=== PATIENT | male | born 1960 | race Caucasian/White ===

== ENCOUNTER 2016-10-28 21:50 | Inpatient (IN) | payer BC ==
[~2016-10-28] VITALS: Ht 180.3 cm; Wt 101.0 kg
[2016-10-28] MEDS ORDERED: ASPIRIN 324 MG CHEW PO STA (22:16)
[2016-10-28] MEDS ORDERED: SODIUM CHLORIDE 0.9% 1000ML 1,000 ML IV ONE (22:30)
[2016-10-28] MEDS ORDERED: NITROGLYCERIN OINT 2% 1GM PACKET EXT ONE (22:30)
[2016-10-28 22:34] LABS: BASO ABS # 0.07 K/uL (0-0.2); COMPLETE YES; EOS % 2.4 %; HEMATOCRIT 42.5 % (42-52); IG% 0.1 %; LYMPH % 32.2 %; LYMPH ABS # 2.16 K/uL (1.2-3.4); MEAN CELL VOLUME 84.3 fL (80-100); MEAN CORPUSCULAR HEMOGLOBIN 28.8 pg (25-34); MEAN CORPUSCULAR HGB CONC 34.1 g/dl (32-36); MEAN PLATELET VOLUME 10.8 fL (7.4-10.4); MONO % 11.6 %; NEUT % 52.7 %; PLATELET COUNT 187 K/uL (130-400); RED BLOOD COUNT 5.04 M/uL (4.7-6.1)
[2016-10-28 22:44] LABS: INR 0.9 (0.9-1.1); PARTIAL THROMBOPLASTIN RATIO 1.2; PROTHROMBIN TIME (PATIENT) 10.1 SECONDS (9.0-12.0)
[2016-10-28 22:46] LABS: BUN/CREATININE RATIO 17.1 (10-20); CREATININE 0.86 mg/dl (0.60-1.40); POTASSIUM 3.7 mmol/L (3.5-5.1)
[2016-10-28 22:51] LABS: CALCIUM 8.5 mg/dl (8.5-10.1)
--- NOTE | 2016-10-28 22:54 | DIAGNOSTIC IMAGING REPORT ---
CHEST 2 VIEWS ROUTINE CLINICAL HISTORY: Left side chest pain dyspnea COMPARISON STUDY: No previous studies for comparison. FINDINGS: The bones soft tissues and hemidiaphragms are normal. The cardiomediastinal silhouette is normal. The lungs are clear. The pulmonary vasculature is normal. IMPRESSION: Negative chest. Electronically signed by: Delfino Urbano M.D. 10/28/2016 10:52 PM Dictated Date/Time: 10/28/2016 10:52 PM
[2016-10-28 22:56] LABS: ALB/GLOB RATIO 1.1 (0.9-2); THYROID STIMULATING HORMONE 1.03 uIu/ml (0.300-4.500)
[2016-10-28 23:07] LABS: URINE APPEARANCE CLEAR (CLEAR); URINE BILIRUBIN NEG (NEG); URINE COLOR YELLOW; URINE NITRITE NEG (NEG); URINE PH 5.5 (4.5-7.5); URINE SPECIFIC GRAVITY 1.027 (1.000-1.030); UROBILINOGEN NEG (NEG); ZZUR CULT IF INDIC CLEAN CATCH NO
[2016-10-28 23:18] LABS: MANUAL MICROSCOPIC REQUIRED? NO; REVIEW REQ? NO
[2016-10-29] VITALS (25 sets, daily range): BP systolic 97–145; BP diastolic 50–102; PULSE 50–86; TEMP 36.4–37; O2SAT 94–98; Ht 180.3 cm; Wt 101.0 kg
[2016-10-29] MEDS ORDERED: ACETAMINOPHEN 325 MG TAB PO PRN ×2 (01:00→08:45)
[2016-10-29] MEDS ORDERED: NITROGLYCERIN 0.4 MG SL PER TAB CHARGE SL PRN (01:00)
[2016-10-29] MEDS ORDERED: ONDANSETRON INJ 2 MG/ML 2 ML VIAL IV PRN ×2 (01:00→08:45)
--- NOTE | 2016-10-29 01:24 | History and Physical ---
History & Physical Date & Time of Service: October 29, 2016 at 01:05 Chief Complaint: Chest Pains, Left Arm Numbess/Jaw Pain, Nausea Primary Care Physician: Catrachito Doyle M.D. History of Present Illness Source: patient Mr Dodson is a 56 year old male who presents with aching left sided chest pain radiating to his left arm with numbness and jaw with associated nausea and dizziness. Over the course of the afternoon his chest pain became increasingly worse but noticed no change with exertion or eating food. He ate dinner and it made no difference to the pain. He had associated nausea and dizziness with this but denies shortness of breath or diaphoresis. He has never had a pain like this previously. He was previously well up until this happened. He denies any diabetes. He was diagnosed with hyperlipidemia and hypertension and was previously on medication for this but both were stopped as they improved with weight loss. Past Medical/Surgical History Past Medical History: Previous HTN, reports no longer requiring medication for control Previous hyperlipidemia, reports no longer requiring medication for control Family History Father had an NE with quadruple bypass in his early 60's Mother had NE in 80's Social History Smoking Status: Never Smoker Smokeless Tobacco Use: No Alcohol Use: occasionally (3-4 drinks beer/wine/week) Drug Use: none Allergies Coded Allergies: Penicillins (Unverified Allergy, Unknown, CHILD HERRERA ALLERGY, 10/28/16) Home Medications No Active Prescriptions or Reported Meds Review of Systems Constitutional: No chills, No fever, No problem reported Eyes: No problem reported, No worsening of vision ENT: No hearing loss, No nasal symptoms, No problem reported, No unusual epistaxis Respiratory: No cough, No dyspnea on exertion, No problem reported, No shortness of breath, No sputum, No wheezing Cardiovascular: + chest pain, No PND, No claudication, No edema, No orthopnea, No palpitations, No problem reported Abdomen: + diarrhea (1 episode loose stool this morning), No constipation, No nausea, No pain, No vomiting Musculoskeletal: No joint pain, No muscle pain, No problem reported Genitourinary - Male: No dysuria, No hematuria, No problem reported Neurologic: + problem reported (headache for past 8 weeks) Psychiatric: No anxiety, No depression symptoms, No substance abuse Endocrine: No excessive thirst, No excessive urination, No fatigue, No problem reported Hematologic / Lymphatic: No abnormal bleeding/bruising, No problem reported Integumentary: No itch, No problem reported, No rash Physical Exam Vital Signs Date Time Temp Pulse Resp B/P Pulse Ox O2 Delivery O2 Flow Rate FiO2 10/29/16 00:43 62 16 121/85 Room Air 10/28/16 23:23 62 16 121/85 96 Room Air 10/28/16 22:20 Room Air 10/28/16 22:19 Room Air 10/28/16 22:10 67 10/28/16 21:54 36.5 60 16 184/100 95 Room Air General Appearance: WD/WN, no apparent distress Head: normocephalic, atraumatic Eyes: normal inspection, PERRL, EOMI ENT: normal ENT inspection, hearing grossly normal, + pertinent finding (mild discharge in nares b/l, good space) Neck: supple, no JVD Respiratory/Chest: lungs clear, normal breath sounds, no respiratory distress, no accessory muscle use, + pertinent finding (chest pain slightly exacerbated on palpation) Cardiovascular: regular rate, rhythm, no edema, no murmur, normal peripheral pulses Abdomen/GI: normal bowel sounds, non tender, soft Back: no CVA tenderness Extremities/Musculoskelatal: no calf tenderness, normal capillary refill, no pedal edema, normal range of motion, + pertinent finding (Left leg calf circumference 2cm> right leg) 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 (grossly), no motor/sensory deficits , alert, normal mood/affect, oriented x 3 Skin: normal color, warm/dry, no rash Diagnostics Laboratory Results Results Past 24 Hours Test 10/28/16 22:07 10/28/16 22:18 10/28/16 22:53 Range/Units White Blood Count 6.70 4.8-10.8 K/uL Red Blood Count 5.04 4.7-6.1 M/uL Hemoglobin 14.5 14.0-18.0 g/dL Hematocrit 42.5 42-52 % Mean Corpuscular Volume 84.3 80-100 fL Mean Corpuscular Hemoglobin 28.8 25-34 pg Mean Corpuscular Hemoglobin Concent 34.1 32-36 g/dl Platelet Count 187 130-400 K/uL Mean Platelet Volume 10.8 7.4-10.4 fL Neutrophils (%) (Auto) 52.7 % Lymphocytes (%) (Auto) 32.2 % Monocytes (%) (Auto) 11.6 % Eosinophils (%) (Auto) 2.4 % Basophils (%) (Auto) 1.0 % Neutrophils # (Auto) 3.52 1.4-6.5 K/uL Lymphocytes # (Auto) 2.16 1.2-3.4 K/uL Monocytes # (Auto) 0.78 0.11-0.59 K/uL Eosinophils # (Auto) 0.16 0-0.5 K/uL Basophils # (Auto) 0.07 0-0.2 K/uL RDW Standard Deviation 39.5 36.4-46.3 fL RDW Coefficient of Variation 13.0 11.5-14.5 % Immature Granulocyte % (Auto) 0.1 % Immature Granulocyte # (Auto) 0.01 0.00-0.02 K/uL Prothrombin Time 10.1 9.0-12.0 SECONDS Prothromb Time International Ratio 0.9 0.9-1.1 Activated Partial Thromboplast Time 30.0 21.0-31.0 SECONDS Partial Thromboplastin Ratio 1.2 Sodium Level 142 136-145 mmol/L Potassium Level 3.7 3.5-5.1 mmol/L Chloride Level 106 98-107 mmol/L Carbon Dioxide Level 28 21-32 mmol/L Anion Gap 8.0 3-11 mmol/L Blood Urea Nitrogen 15 7-18 mg/dl Creatinine 0.86 0.60-1.40 mg/dl Est Creatinine Clear Calc Drug Dose 114.3 ml/min Estimated GFR () 111.6 Estimated GFR (Non- 96.3 BUN/Creatinine Ratio 17.1 10-20 Random Glucose 150 70-99 mg/dl Calcium Level 8.5 8.5-10.1 mg/dl Magnesium Level 2.0 1.8-2.4 mg/dl Total Bilirubin 0.3 0.2-1 mg/dl Aspartate Amino Transf (AST/SGOT) 32 15-37 U/L Alanine Aminotransferase (ALT/SGPT) 42 12-78 U/L Alkaline Phosphatase 84 45-117 U/L Total Protein 7.1 6.4-8.2 gm/dl Albumin 3.7 3.4-5.0 gm/dl Globulin 3.4 2.5-4.0 gm/dl Albumin/Globulin Ratio 1.1 0.9-2 Lipase 267 73-393 U/L Thyroid Stimulating Hormone (TSH) 1.030 0.300-4.500 uIu/ml Bedside Troponin I 0.020 0-0.045 ng/ml Urine Color YELLOW Urine Appearance CLEAR CLEAR Urine pH 5.5 4.5-7.5 Urine Specific [place] 1.027 1.000-1.030 Urine Protein 1+ NEG Urine Glucose (UA) NEG NEG Urine Ketones TRACE NEG Urine Occult Blood NEG NEG Urine Nitrite NEG NEG Urine Bilirubin NEG NEG Urine Urobilinogen NEG NEG Urine Leukocyte Esterase NEG NEG Urine WBC (Auto) 1-5 0-5 /hpf Urine RBC (Auto) 0-4 0-4 /hpf Urine Hyaline Casts (Auto) 0 0-5 /lpf Urine Epithelial Cells (Auto) 10-20 0-5 /lpf Urine Bacteria (Auto) NEG NEG CXR normal, No Pneumothorax, No Infiltrate, No Mass, No Atelectasis, No Effusion EKG No ischemic changes 74 bpm Normal EKG Impression Assessment and Plan 56 year old male presented with left sided chest pain, associated dizziness and left arm numbness. Chest pain with associated left arm numbness - does not appear GI related, need to rule out NE with FHx and PE with leg circumference difference. - D-dimer pending - Serial troponin - Consider stress echo in morning if above negative - will be NPO due to possible need for cardiac cath tomorrow - nitro and EKG for chest pain - somewhat reproducible therefore may be costochondritis, recommend treating with ibuprofen if above is negative. Left leg circumference > right leg - given discrepancy in circumference I will order a d-dimer to rule out DVT/PE. If positive will need a US doppler and CTA. Tension vs. sinus headache - acetaminophen as required - Follow up with PCP VTE Prophylaxis - Given young age and mobility with likely short admission will hold off chemical prophyalaxis currently. If DVT or PE confirmed he will need treatment dose. Code - Full Disposition - observation status under telemetry Level of Care Telemetry Advanced Directives Existing Living Will: No Existing Power of Research Physicist: No Resuscitation Status FULL RESUSCITATION VTE Prophylaxis VTE Risk Assessment Done? Y/N: Yes Risk Level: Low Given or contraindicated: Treatment not indicated Resident Tracking Resident Involvement: Resident Care Provided Care Provided: Adult [facility] Medicine Assessment and Plan Attending Addendum: I have physically seen and examined this patient, have directed their medical care, have supervised the medical residents activities, and agree with the H&P as noted above, with the following changes: NONE
[2016-10-29] MEDS ORDERED: IV FLUIDS COMPLETED PRN (01:45)
[2016-10-29] MEDS: SODIUM CHLORIDE 0.9% 1000ML 1,000 ML IV SCH ×3 (02:08→16:11)
--- NOTE | 2016-10-29 02:10 | EMERGENCY ROOM VISIT NOTE ---
History First contact with patient: 22:03 Chief Complaint: CHEST PAIN Stated Complaint: CHEST PAIN, R/O ACUTE MYOCARDIAL INFARCTION Nursing Triage Summary: CP 5/10 radiating to left arm. Pain is less now then when at home. History of Present Illness The patient is a 56 year old male who presents to the Emergency Room with complaints of dull left-sided chest pain that is radiating into his left shoulder and into his left-sided neck. The patient states that the symptoms have been ongoing all day and did not appear to improve or worsen with food or exertion. The patient considers herself usually healthy and does not take medication on a regular basis. He has a past history of hypertension and dyslipidemia, but this is evidently been controlled with weight loss. The patient is not diabetic. He states that he has a family history of cardiac disease, with his father having an ID in his early 60s and his mother having an ID in her 80s. The patient does not have distinct shortness of breath. He has not had recent travel history and rates his discomfort a 5/10. Review of Systems More than 10 systems were reviewed and otherwise negative with the exception of history of present illness. Past Medical/Surgical History Medical Problems: (1) Chest pain, rule out acute myocardial infarction Social History Smoking Status: Never Smoker Smokeless Tobacco Use: No Drug Use: none Current/Historical Medications No Active Prescriptions or Reported Meds Allergies Coded Allergies: Penicillins (Unverified Allergy, Unknown, CHILD HERRERA ALLERGY, 10/28/16) Physical Exam Vital Signs Date Time Temp Pulse Resp B/P Pulse Ox O2 Delivery O2 Flow Rate FiO2 10/29/16 00:43 62 16 121/85 Room Air 10/28/16 23:23 62 16 121/85 96 Room Air 10/28/16 22:20 Room Air 10/28/16 22:19 Room Air 10/28/16 22:10 67 10/28/16 21:54 36.5 60 16 184/100 95 Room Air Pain Rating (0-10): 0 Physical Exam VITALS: Vitals are noted on the nurse's note and reviewed by myself. Vital signs with initial hypertension GENERAL: Well-developed, well-nourished, white male, who is in no acute distress and resting comfortably. Patient is cooperative with the examination. HEAD: Normocephalic atraumatic. NECK: Supple without nuchal rigidity. No lymphadenopathy. No thyromegaly. Cervical spine is nontender. HEART: Regular rate and rhythm without murmurs gallops or rubs. LUNGS: Clear to auscultation bilaterally without wheezes, rales or rhonchi. No retractions or accessory muscle use. MUSCULOSKELETAL: No muscle atrophy, erythema, or edema noted. Full range of motion without joint tenderness in all extremities. Medical Decision & Procedures ER Provider Diagnostic Interpretation: CHEST 2 VIEWS ROUTINE CLINICAL HISTORY: Left side chest pain dyspnea COMPARISON STUDY: No previous studies for comparison. FINDINGS: The bones soft tissues and hemidiaphragms are normal. The cardiomediastinal silhouette is normal. The lungs are clear. The pulmonary vasculature is normal. IMPRESSION: Negative chest. Laboratory Results 10/28/16 22:07 Red Blood Count 5.04, Mean Corpuscular Volume 84.3, Mean Corpuscular Hemoglobin 28.8, Mean Corpuscular Hemoglobin Concent 34.1, Mean Platelet Volume 10.8, Neutrophils (%) (Auto) 52.7, Lymphocytes (%) (Auto) 32.2, Monocytes (%) (Auto) 11.6, Eosinophils (%) (Auto) 2.4, Basophils (%) (Auto) 1.0, Neutrophils # (Auto ) 3.52, Lymphocytes # (Auto) 2.16, Monocytes # (Auto) 0.78, Eosinophils # (Auto ) 0.16, Basophils # (Auto) 0.07 10/28/16 22:07 Test 10/28/16 22:07 10/28/16 22:18 10/28/16 22:53 White Blood Count 6.70 K/uL (4.8-10.8) Red Blood Count 5.04 M/uL (4.7-6.1) Hemoglobin 14.5 g/dL (14.0-18.0) Hematocrit 42.5 % (42-52) Mean Corpuscular Volume 84.3 fL (80-100) Mean Corpuscular Hemoglobin 28.8 pg (25-34) Mean Corpuscular Hemoglobin Concent 34.1 g/dl (32-36) Platelet Count 187 K/uL (130-400) Mean Platelet Volume 10.8 fL (7.4-10.4) Neutrophils (%) (Auto) 52.7 % Lymphocytes (%) (Auto) 32.2 % Monocytes (%) (Auto) 11.6 % Eosinophils (%) (Auto) 2.4 % Basophils (%) (Auto) 1.0 % Neutrophils # (Auto) 3.52 K/uL (1.4-6.5) Lymphocytes # (Auto) 2.16 K/uL (1.2-3.4) Monocytes # (Auto) 0.78 K/uL (0.11-0.59) Eosinophils # (Auto) 0.16 K/uL (0-0.5) Basophils # (Auto) 0.07 K/uL (0-0.2) RDW Standard Deviation 39.5 fL (36.4-46.3) RDW Coefficient of Variation 13.0 % (11.5-14.5) Immature Granulocyte % (Auto) 0.1 % Immature Granulocyte # (Auto) 0.01 K/uL (0.00-0.02) Prothrombin Time 10.1 SECONDS (9.0-12.0) Prothromb Time International Ratio 0.9 (0.9-1.1) Activated Partial Thromboplast Time 30.0 SECONDS (21.0-31.0) Partial Thromboplastin Ratio 1.2 D-Dimer 260 ug/L FEU (0-500) Anion Gap 8.0 mmol/L (3-11) Est Creatinine Clear Calc Drug Dose 114.3 ml/min Estimated GFR () 111.6 Estimated GFR (Non- 96.3 BUN/Creatinine Ratio 17.1 (10-20) Calcium Level 8.5 mg/dl (8.5-10.1) Magnesium Level 2.0 mg/dl (1.8-2.4) Total Bilirubin 0.3 mg/dl (0.2-1) Aspartate Amino Transf (AST/SGOT) 32 U/L (15-37) Alanine Aminotransferase (ALT/SGPT) 42 U/L (12-78) Alkaline Phosphatase 84 U/L (45-117) Troponin I 0.023 ng/ml (0-0.045) Total Protein 7.1 gm/dl (6.4-8.2) Albumin 3.7 gm/dl (3.4-5.0) Globulin 3.4 gm/dl (2.5-4.0) Albumin/Globulin Ratio 1.1 (0.9-2) Lipase 267 U/L (73-393) Thyroid Stimulating Hormone (TSH) 1.030 uIu/ml (0.300-4.500) Bedside Troponin I 0.020 ng/ml (0-0.045) Urine Color YELLOW Urine Appearance CLEAR (CLEAR) Urine pH 5.5 (4.5-7.5) Urine Specific [place] 1.027 (1.000-1.030) Urine Protein 1+ (NEG) Urine Glucose (UA) NEG (NEG) Urine Ketones TRACE (NEG) Urine Occult Blood NEG (NEG) Urine Nitrite NEG (NEG) Urine Bilirubin NEG (NEG) Urine Urobilinogen NEG (NEG) Urine Leukocyte Esterase NEG (NEG) Urine WBC (Auto) 1-5 /hpf (0-5) Urine RBC (Auto) 0-4 /hpf (0-4) Urine Hyaline Casts (Auto) 0 /lpf (0-5) Urine Epithelial Cells (Auto) 10-20 /lpf (0-5) Urine Bacteria (Auto) NEG (NEG) Medications Administered Medications (Trade) Dose Ordered Sig/Sera Route Start Time Stop Time Status Last Admin Dose Admin Aspirin (Aspirin Chew) 324 mg NOW STAT PO 10/28/16 22:16 10/28/16 22:19 DC 10/28/16 22:29 324 MG Nitroglycerin 1 inch 1 inch NOW ONCE EXT 10/28/16 22:30 10/28/16 22:31 DC 10/28/16 22:30 1 INCH Sodium Chloride (Nss 1000ml) 1,000 ml @ 500 mls/hr Q2H ONCE IV 10/28/16 22:30 10/29/16 00:29 DC 10/28/16 22:30 500 MLS/HR ED Course Physical exam and history were performed. Nursing notes and EMR were reviewed. Patient appears to have vague left-sided chest pain with radiation to his left shoulder and left side neck. EKG was performed and was normal sinus rhythm without ST elevation or evidence of ectopy. IV access was established and labs were obtained. The patient was given 324 mg aspirin and 1 inch Nitropaste. He is placed on the cardiac cath rn. Chest x-ray was performed. The patient's blood work is as above and was reviewed. He does not have a significantly elevated white blood cell count, gross anemia, bandemia, or significant electrolyte imbalance. Lipase and transaminases are nondiagnostic. Troponin 1 is negative. The patient remained in sinus rhythm on the monitor. Chest x-ray does not show significant acute findings. The patient was reevaluated multiple person stay. He did have some mild improvement of his discomfort throughout his stay here in the department. I do have concern that the patient's symptoms may represent unstable angina. He does have a condemned and family history, and his discomfort does correlate with cardiac symptoms. I discussed case with my attending physician, and then with the on-call hospitalist. Please see the hospitalist dictation for further patient course, plan, and disposition. The chart was completed utilizing [employer] Voice Recognition Software. Grammatical errors, random word insertions, pronoun errors, and incomplete sentences are an occasional consequence of this system due to software limitations, ambient noise, and hardware issues. Any formal questions or concerns about the content, text, or information contained within the body of this dictation should be directly addressed to the provider for clarification. . Medical Decision Differential diagnosis includes, but is not limited to: Myocardial infarction, dysrhythmia, pericarditis, pneumothorax, aortic aneurysm/dissection, DVT/PE, anxiety, GERD, PUD, electrolyte imbalance, thyroid disorder, pneumonia, bronchitis, pancreatitis, and others Impression Primary Impression: Chest pain, rule out acute myocardial infarction Departure Information Dispostion Still a Patient Condition GOOD Prescriptions No Active Prescriptions or Reported Meds Referrals Catrachito Doyle M.D. (PCP) Forms HOME CARE DOCUMENTATION FORM, IMPORTANT VISIT INFORMATION Patient Instructions My [facility]
[2016-10-29] MEDS ORDERED: MoRPHine SULFATE 2 MG/ML CARP IV STA (05:18)
[2016-10-29 05:28] LABS: HEMATOCRIT 40.8 % (42-52); MEAN CELL VOLUME 86.3 fL (80-100); MEAN CORPUSCULAR HEMOGLOBIN 28.3 pg (25-34); MEAN CORPUSCULAR HGB CONC 32.8 g/dl (32-36); MEAN PLATELET VOLUME 10.9 fL (7.4-10.4); PLATELET COUNT 155 K/uL (130-400); RED BLOOD COUNT 4.73 M/uL (4.7-6.1); WHITE BLOOD COUNT 5.84 K/uL (4.8-10.8)
[2016-10-29] MEDS ORDERED: MoRPHine SULFATE 2 MG/ML CARP IV PRN ×2 (05:30→08:45)
[2016-10-29 05:52] LABS: CALCIUM 8.1 mg/dl (8.5-10.1); CREATININE 0.79 mg/dl (0.60-1.40); POTASSIUM 3.8 mmol/L (3.5-5.1)
[2016-10-29 06:03] LABS: CHOLESTEROL/HDL RATIO 7.6
[2016-10-29 06:28] LABS: ESTIMATED AVERAGE GLUCOSE 111 mg/dl; HA1C FLAG Normal (Normal)
[2016-10-29] MEDS ORDERED: POTASSIUM CHLORIDE 20 MEQ TABCR PO STA (06:40)
[2016-10-29] MEDS: ASPIRIN 81 MG ECTAB PO SCH (07:28)
[2016-10-29] MEDS: ATORVASTATIN 40 MG TAB PO SCH (07:28)
[2016-10-29] MEDS ORDERED: HEPARIN SOD (PORCINE) 1000 UNIT/ML 10 ML VIAL ONE (08:13)
[2016-10-29] MEDS ORDERED: NiCARDipine HCL INJ 2.5 MG/ML 10 ML AMP ONE (08:13)
[2016-10-29] MEDS ORDERED: MIDAZOLAM HCL 1 MG/ML 2ML VIAL ONE (08:14)
[2016-10-29] MEDS ORDERED: NITROGLYCERIN/D5W 100MCG/ML 20ML SYR ONE (08:14)
[2016-10-29] MEDS ORDERED: FENTANYL CITRATE INJ 50 MCG/1 ML 2 ML VIAL ONE (08:14)
[2016-10-29] MEDS ORDERED: EPTIFIBATIDE BOLUS / DRIP IV ONE (08:45)
[2016-10-29] MEDS ORDERED: ATROPINE SULFATE 0.1 MG/ML 5ML SYR IV PRN (08:45)
[2016-10-29] MEDS ORDERED: LORAZEPAM INJ 0.5 MG in SYRINGE 0 ML IV PRN (08:45)
[2016-10-29] MEDS: CLOPIDOGREL BISULFATE 300 MG TAB PO ONE (09:06)
[2016-10-29] MEDS ORDERED: ATROPINE SULFATE 0.1 MG/ML 10 ML SYR ONE (09:07)
[2016-10-29] MEDS ORDERED: METOPROLOL TARTRATE 1 MG/ML VIAL ONE (09:19)
--- NOTE | 2016-10-29 09:40 | ECHOCARDIOGRAM REPORT ---
*NOTICE TO RECEIVING CONSTITUTION PARTY AGENCY This information is strictly Confidential and protected under [place] law. [place] law prohibits you from making any further disclosure of this information unless further disclosure is expressly permitted by the written consent of the person to whom it pertains or is authorized by law. A general authorization for the release of medical or other information is not sufficient for this purpose. Hospital accepts no responsibility if the information is made available to any other person, INCLUDING THE PATIENT. Interpretation Summary * Conclusions -- * Left ventricular systolic function is normal. * There are regional wall motion abnormalities as specified. * The right ventricular systolic function is mild to moderately reduced. * There is mild mitral regurgitation. Procedure Details * The study was technically adequate. Left Ventricle * The left ventricle is normal in size. * There is normal left ventricular wall thickness. * Left ventricular systolic function is normal. * Ejection Fraction = 50-55%. * There are regional wall motion abnormalities as specified. * Basal inferior wall is mildly hypokinetic Right Ventricle * The right ventricle is grossly normal size. * The right ventricular systolic function is mild to moderately reduced. Atria * The left atrial size is normal. * Right atrial size is normal. Mitral Valve * The mitral valve anatomy is normal. * There is mild mitral regurgitation. Tricuspid Valve * The tricuspid valve is not well visualized, but is grossly normal. * There is trace tricuspid regurgitation. Aortic Valve * The aortic valve is normal in structure and function. * No hemodynamically significant valvular aortic stenosis. * There is no significant aortic regurgitation. Pulmonic Valve * Trace pulmonic valvular regurgitation. Great Vessels * The aortic root is normal size. Pericardium/Pleural * There is no pericardial effusion. MMode 2D Measurements and Calculations IVSd 1.2 cm IVSs 1.7 cm LVIDd 4.9 cm LVIDs 3.6 cm LVPWd 0.97 cm LVPWs 1.5 cm IVS/LVPW 1.3 FS 26.9 % EDV(Teich) 112.2 ml ESV(Teich) 53.5 ml EF(Teich) 52.3 % EDV(cubed) 116.8 ml ESV(cubed) 45.7 ml EF(cubed) 60.9 % % IVS thick 41.5 % % LVPW thick 53.2 % LV mass(C)d 197.7 grams LV mass(C)dI 90.2 grams/m\S\2 LV mass(C)s 221.8 grams LV mass(C)sI 101.2 grams/m\S\2 SV(Teich) 58.6 ml SI(Teich) 26.8 ml/m\S\2 SV(cubed) 71.1 ml SI(cubed) 32.4 ml/m\S\2 Ao root diam 3.4 cm Ao root area 9.1 cm\S\2 LA dimension 3.8 cm LA/Ao 1.1 LVAd ap4 33.8 cm\S\2 LVLd ap4 9.6 cm EDV(MOD-sp4) 98.0 ml EDV(sp4-el) 101.3 ml LVAs ap4 20.8 cm\S\2 LVLs ap4 7.9 cm ESV(MOD-sp4) 46.8 ml ESV(sp4-el) 46.2 ml EF(MOD-sp4) 52.2 % EF(sp4-el) 54.4 % LVAd ap2 29.5 cm\S\2 LVLd ap2 8.4 cm EDV(MOD-sp2) 89.5 ml EDV(sp2-el) 88.3 ml LVAs ap2 17.1 cm\S\2 LVLs ap2 5.9 cm ESV(MOD-sp2) 43.0 ml ESV(sp2-el) 41.7 ml EF(MOD-sp2) 51.9 % EF(sp2-el) 52.7 % LVLd %diff -14.27 % EDV(MOD-bp) 100.8 ml LVLs %diff -33.94 % ESV(MOD-bp) 53.0 ml EF(MOD-bp) 47.5 % SV(MOD-sp4) 51.1 ml SI(MOD-sp4) 23.3 ml/m\S\2 SV(MOD-sp2) 46.5 ml SI(MOD-sp2) 21.2 ml/m\S\2 SV(MOD-bp) 47.8 ml SI(MOD-bp) 21.8 ml/m\S\2 SV(sp4-el) 55.1 ml SI(sp4-el) 25.2 ml/m\S\2 SV(sp2-el) 46.6 ml SI(sp2-el) 21.2 ml/m\S\2 Doppler Measurements and Calculations MV E max uday 85.6 cm/sec MV A max uday 71.0 cm/sec MV E/A 1.2 MV dec time 0.18 sec Ao V2 max 130.3 cm/sec Ao max PG 6.8 mmHg Ao max PG (full) 3.5 mmHg LV V1 max PG 3.3 mmHg LV V1 max 91.3 cm/sec
--- NOTE | 2016-10-29 10:11 | Procedure Note ---
Pre-Mod Sedation Assessment General Date of Moderate Sedation: October 29, 2016. Vital Signs: Vital Signs Past 12 Hours Date Time Temp Pulse Resp B/P Pulse Ox O2 Delivery O2 Flow Rate FiO2 10/29/16 09:45 95 18 135/99 95 Room Air 10/29/16 09:30 96 18 130/86 95 Room Air 10/29/16 08:24 36.5 63 16 140/98 94 Room Air 10/29/16 08:00 Room Air 10/29/16 07:55 36.5 63 16 140/98 94 Room Air 10/29/16 04:00 Room Air 10/29/16 03:54 50 16 143/85 94 Room Air 10/29/16 01:40 36.4 58 16 122/85 94 Room Air 10/29/16 01:25 36.6 63 16 118/84 94 10/29/16 00:43 62 16 121/85 Room Air 10/28/16 23:23 62 16 121/85 96 Room Air 10/28/16 22:20 Room Air 10/28/16 22:19 Room Air 10/28/16 22:10 67 Review Cardiovascular: regular rate, rhythm, no edema, no gallop, no JVD, no murmur, normal peripheral pulses Abdomen: non tender, soft Lungs: lungs clear Pre-Sedation Airway Assessment Oral Cavity: WNL Able to Visualize Vocal Cords: No Short Thick Neck: No Hx of Sleep Apnea: No Smoking Status: Never Smoker ASA Classification: Class III Procedure Planning Contraindications-for Mod Sed: None Yes Notes The planned sedation has been discussed with the patient and consent obtained. I have identified the patient, determined the appropriateness of sedation and have assessed the patient immediately prior to the procedure. All medicine(s) and interventions are by my order.
[2016-10-29 10:20] LABS: BASO % 0.4 %; BASO ABS # 0.03 K/uL (0-0.2); EOS % 0.7 %; HEMATOCRIT 44.6 % (42-52); IG% 0.1 %; LYMPH % 21.3 %; LYMPH ABS # 1.55 K/uL (1.2-3.4); MEAN CELL VOLUME 85.9 fL (80-100); MEAN CORPUSCULAR HEMOGLOBIN 28.3 pg (25-34); MEAN PLATELET VOLUME 11.7 fL (7.4-10.4); NEUT % 69.5 %; PLATELET COUNT 157 K/uL (130-400); RED BLOOD COUNT 5.19 M/uL (4.7-6.1); WHITE BLOOD COUNT 7.26 K/uL (4.8-10.8)
[2016-10-29 10:33] LABS: COMPLETE YES
[2016-10-29] MEDS: NITROGLYCERIN 2% OINTMENT 30GM TUBE EXT SCH ×2 (10:34→23:02)
--- NOTE | 2016-10-29 10:36 | Cardiac Catheterization ---
Procedure Note Procedure Date October 29, 2016. Pre-Procedure Diagnosis STEMI AUC Score 9 Post-Procedure Diagnosis Severe CAD, Successful PCI, Decreased LV Systolic Function, Elevated Intracardiac Pressures ( mildly eleated left ventricular end diastolic pressure ( 14 millimeters Hg )) Procedure(s) Performed Coronary Angiography, Left Heart Cath, LV Angiography, PTCA, Drug Eluting Stent Communications Systems Engineer Dr. Gramajo Snack Steward(s) Allyson Fernandez, ARLET Medication(s) Atropine, Clopidogrel, Fentanyl, Heparin, Integrilin, Metoprolol, Nicardipine ( intra-arterial and intracoronary), Versed, Lidocaine 1% Summary of Findings Clinical indications: Acute inferior myocardial infarction. catheterization site: 6 Cambodian glide sheath right radial artery. Equipment: 5 Cambodian brachial 3.5 diagnostic catheter, 6 Cambodian JR4 guide catheter, 6 Cambodian pigtail catheter, Egodeus Sprinter 3.0 x 12 millimeter balloon dilatation catheter, Medtronic Resolute Integrity 4 x 18 millimeter drug -eluting stent. Protocol: Diagnostic angiography was 1st performed. This revealed a total mid RCA occlusion. PTCA was then performed to the mid RCA with a total of 2 balloon inflations to maximum pressure of 8 atmospheres and maximum duration of 20 seconds. Intravenous heparin and Integrilin had been administered prior to intervention. A therapeutic activated clotting time was documented. The stent was then deployed in the mid RCA at the rated burst pressure of 15 atmospheres for duration of 45 seconds. Follow-up angiography was then performed. The repeat left coronary angiography was then performed. She initially only 1 angiogram the left coronary artery was performed prior to the intervention to the RCA. Left ventricular angiography was then performed using a hand injection of contrast dye. With reperfusion of the right coronary artery the patient developed sinus bradycardia and hypotension. This was treated successfully with administration of intravenous atropine and a bolus of normal saline. No further bradycardia. He remained hemodynamically stable thereafter. No ventricular arrhythmia is. Because he had a good blood pressure and sinus tachycardia after the above treatments he was ultimately given 5 milligrams of intravenous metoprolol which helped decrease his heart rate. following coronary intervention his chest discomfort resolved. During the procedure he continues to complain of mild left arm discomfort. At the completion of procedure the left arm discomfort also completely resolved. Hemostasis: Terumo TR band. Complications: No significant complications. Transient bradycardia and hypotension following reperfusion of the RCA. Quick and successful treatment with intravenous atropine and a pulse of normal saline. Findings: Fluoroscopy revealed very mild coronary calcifications. The coronary circulation was right dominant. Initial right coronary artery angiography revealed a total early mid RCA occlusion with MIKE 0 flow. After passage of the wire balloon MIKE 1 flow was established. There is then evidence of a severe underlying mid RCA stenosis. Following PTCA there was a 95 percent mid RCA stenosis noted. Evidence of an ulcerated plaque. MIKE 2 flow was established in the distal RCA. Following stent deployment MIKE 3 flow was present into the RCA and its distal branches. The residual stenosis at the stent site was 0-10 percent. There is a step-up and step-down prior to and distal to the stent respectively. No evidence of dissection, thrombus, perforation, or distal embolic event. The proximal RCA had a 0-10 percent stenosis. The stented region gave rise to a small caliber right ventricular branch which had MIKE 2 flow following intervention. Immediately following the stent the RCA had a 20 percent stenosis. The distal RCA gave rise to a long acute marginal artery which had minor atherosclerotic disease. The distal RCA had diffuse mild 10-30 percent stenoses. The distal RCA gave rise to small caliber posterior descending and posterolateral arteries. These vessels had minor luminal irregularities. The left main coronary artery was a short large caliber vessel giving rise to large caliber left anterior descending left circumflex coronary arteries. The left main had no obstructive disease. The proximal LAD gave rise to a long medium caliber 1st diagonal artery which had a proximal 10-20 percent stenosis. After the 1st septal perforating branch the LAD had a 30 percent stenosis. The remainder of the mid LAD had diffuse mild atherosclerotic disease with 10-20 percent luminal diameter narrowing. The distal LAD had diffuse mild atherosclerotic disease with 10-20 percent luminal diameter narrowing. The very proximal left circumflex gave rise to a very small caliber diagonal artery. The proximal left circumflex had a 0-10 percent stenosis. The mid circumflex gave rise to a long large caliber bifurcating marginal artery which had a 0-10 percent stenosis. Following the origin of the marginal the circumflex became a small-caliber vessel. The distal circumflex gave rise to a very small caliber posterolateral artery. Left ventricular angiography performed from the 30 degree right anterior oblique projection with a hand injection of contrast dye revealed the posterobasal and diaphragmatic segments to be hypokinetic. The apical, anterolateral, and anterior basal segments contracted normally. LV ejection fraction approximately 50 percent. Trace mitral regurgitation. Plan: The patient was transferred to the intensive care unit postprocedure. In the pathology laboratory director post PCI he received an oral loading dose of clopidogrel. Should remain on dual antiplatelet therapy for 1 year. He will be started on beta-ramos, Sawyer inhibitor, and statin therapy. Serial electrocadiograms and cardiac enzymes. Serial labs including cardiac enzymes. Hemodynamics Rest Ao: 140/90/115 mm Hg Final Ao: 130/88/109 mm Hg LV: 125/14 mm Hg Recommendations Medical therapy and/or Counseling, PCI without planned CABG Specimens None Radiation Exposure (mGy) 2551 Contrast (mls) 250 ml Visipaque Fluids (cc crystalloids) 352 Drains None Anesthesia intravenous Versed and fentanyl. Lidocaine 1% local. Procedural Complication(s) None Disposition ICU ACC Data Cardiac Status Clinical evaluation leading to the procedure CAD Presntation: STEMI STEMI or Non-STEMI: Thrombolytics: No Anginal Classification: CCS IV Heart Failure: No Cardiogenic Shock w/in 24Hrs: No Cardiac Arrest w/in 24Hrs: No Imaging studies past 6 months: Yes ( echocardiogram performed immediately prior to this procedure revealed LV ejection fraction approximately 50 percent. Basal posterior and inferior hypokinesis.) Stress studies past 6 months: No Standard Exercise Stress Test: No Stress Echocardiogram: No Stress Testing w/SPECT MPI: No Cardiac CTA: No Coronary Anatomy Dominant: Right Left Main (% Stenosis): Normal LAD (% Stenosis): Mid (30, diffuse 10-20), Distal (diffuse 10-20) D1 (% Stenosis): Proximal (10-20) Circumflex (% Stenosis): Proximal (0-10) OM1 (% Stenosis): Proximal L PL1 (% Stenosis): Normal RCA (% Stenosis): Mid (100, 20), Distal (diffuse 10-30) R PDA (% Stenosis): Proximal (0-10) R PL1 (% Stenosis): Proximal Left Ventricular Angiography EF (%): 50 Wall Motion: Inferior (Hypokinetic), Apical (Normal), Anterior (Normal) Mitral Regurgitation: None Diagnostic Physician's Name: Enrique Gramajo M.D. Status: Emergency Closure Device Percutaneous Entry Location: Radial Closure Device: Radial Band Recommendations: Medical therapy and/or Counseling, PCI without planned CABG PCI Indication: Immediate PCI for STEMI First Noted: Subsequent EKG Lesion Segment Name: Mid RCA Culprit Artery: Yes Stenosis Prior to Rx (%): 100 Chronic Total Occlusion: No IVUS: No FFR: No Pre-Procedure MIKE Flow: 0 Previously Treated Lesion: No Lesion Complexity: Non-High/Non-C Lesion Length (mm): 10 Thrombus Present: Yes Bifurcation Lesion: No Guidewire Across Lesion: Yes Guidewire: Stenosis Post-Procedure (%): 0-10 Post-Procedure MIKE Flow: 3 Type of Device(s): Egodeus 4 X 18 mm Resolute Integrity AYANNA Intraprocedure Events Significant Dissection: No Perforation: No
--- NOTE | 2016-10-29 10:37 | Procedure Note ---
Post-Mod Sedation Assessment General Date of Moderate Sedation October 29, 2016. Vital Signs: Vital Signs Past 12 Hours Date Time Temp Pulse Resp B/P Pulse Ox O2 Delivery O2 Flow Rate FiO2 10/29/16 09:45 95 18 135/99 95 Room Air 10/29/16 09:30 96 18 130/86 95 Room Air 10/29/16 08:24 36.5 63 16 140/98 94 Room Air 10/29/16 08:00 Room Air 10/29/16 07:55 36.5 63 16 140/98 94 Room Air 10/29/16 04:00 Room Air 10/29/16 03:54 50 16 143/85 94 Room Air 10/29/16 01:40 36.4 58 16 122/85 94 Room Air 10/29/16 01:25 36.6 63 16 118/84 94 10/29/16 00:43 62 16 121/85 Room Air 10/28/16 23:23 62 16 121/85 96 Room Air Review - Discharge Criteria Vital Signs Stable: Yes Alert/Oriented/Conversant: Yes Returned to Baseline Mental St: Yes Nausea Absent/Minimal: Yes Pain/Discomfort/Absent/Minimal: Yes Normal/Baseline Respirations: Yes Active Bleeding?: No Pt Received D/C Instructions: N/A Prescriptions Given: None Specific Proced. D/C Criteria Distal Pulses Present (Cardiac: Yes Groin site assessed-Card Cath: N/A Voided Prior To Discharge: N/A Discharged Patients Adult Escort/Transportation: N/A
[2016-10-29 10:39] LABS: CKMB/CK RATIO 2.6 (0-3.0)
[2016-10-29] MEDS ORDERED: NURSING VERBAL MED ORDER ONE (10:45)
[2016-10-29] MEDS ORDERED: ASPIRIN 81 MG ECTAB PO SCH (11:00)
--- NOTE | 2016-10-29 11:01 | Family Medicine Progress Note ---
Progress Note Date of Service October 29, 2016. Subjective Pt evaluation today including: conversation w/ patient, physical exam, chart review, lab review Pain: currently pain-free 56-year-old male with past medical history of hypertension and hyperlipidemia controlled with diet and lifestyle modifications presented to the ER with complaints of a vague chest discomfort which started last night . His radiation to his left arm with numbness and is associated with nausea and dizziness. He however denied any shortness of breath and palpitations. In the ER, he had no acute EKG changes and initial troponin was negative. He developed some chest discomfort in the morning which resulted in increase in his troponin to 0.146 and an EKG revealed ST elevation in the inferior leads. Cardiac catheterization was performed which revealed 100% occlusion of the mid RCA. A drug eluting stent was placed and he was transferred to the ICU . He is currently on Integrilin infusion. Denies any chest pain, shortness of breath, palpitations, dizziness. He no longer has any numbness along his left arm Constitutional: No chills, No fever Eyes: No worsening of vision ENT: No hearing loss Respiratory: No cough, No sputum Cardiovascular: No chest pain Abdomen: No nausea, No pain Musculoskeletal: No joint pain Male : No dysuria Neurologic: No memory loss, No paralysis Medications Current Inpatient Medications Medications (Trade) Dose Ordered Sig/Sera Route Start Time Stop Time Status Last Admin Dose Admin Nitroglycerin (Nitrostat Tab) 0.4 mg UD PRN SL 10/29/16 01:00 11/28/16 00:59 10/29/16 04:12 0.4 MG Aspirin 81 mg 81 mg QAM PO 10/29/16 09:00 11/28/16 08:59 10/29/16 07:28 81 MG Sodium Chloride (Nss 1000ml) 1,000 ml @ 125 mls/hr Q8H IV 10/29/16 02:00 11/28/16 01:59 10/29/16 02:08 125 MLS/HR Miscellaneous (Iv Fluids Completed) 1 ea PRN PRN N/A 10/29/16 01:45 10/29/17 01:44 Atorvastatin Calcium (Lipitor Tab) 80 mg QAM PO 10/29/16 09:00 11/28/16 08:59 10/29/16 07:28 80 MG Nitroglycerin (Nitroglycerin 2% Oint) 1 inch Q6 EXT 10/29/16 06:45 11/28/16 06:44 Atropine Sulfate (Atropine Sulfate 0.1MG/Ml Inj) 0.5 mg ONE PRN IV 10/29/16 08:45 11/28/16 08:44 Ondansetron HCl (Zofran Inj) 4 mg Q6H PRN IV 10/29/16 08:45 11/28/16 08:44 Clopidogrel Bisulfate (plAVix TAB) 75 mg QAM PO 10/29/16 11:00 11/28/16 10:59 Future hold Metoprolol Tartrate (Lopressor Tab) 25 mg Q12 PO 10/29/16 11:00 11/28/16 10:59 Lisinopril (Zestril Tab) 5 mg QAM PO 10/29/16 11:00 11/28/16 10:59 Acetaminophen (Tylenol Tab) 650 mg Q4H PRN PO 10/29/16 08:45 11/28/16 08:44 Morphine Sulfate 2 mg 2 mg Q5M PRN IV 10/29/16 08:45 11/12/16 08:44 Lorazepam 0.5 mg/ Syringe 0.25 ml @ 1 mls/min Q6H PRN IV 10/29/16 08:45 11/28/16 08:44 Eptifibatide (Integrilin Inj) 100 ml @ 15.9 mls/hr Q6H18M IV 10/29/16 10:30 10/30/16 05:00 Miscellaneous (Stop Order) 1 ea TODAY@0500 ONCE N/A 10/30/16 05:00 10/30/16 05:01 Objective Vital Signs Date Time Temp Pulse Resp B/P Pulse Ox O2 Delivery O2 Flow Rate FiO2 10/29/16 09:45 95 18 135/99 95 Room Air 10/29/16 09:30 96 18 130/86 95 Room Air 10/29/16 08:24 36.5 63 16 140/98 94 Room Air 10/29/16 08:00 Room Air 10/29/16 07:55 36.5 63 16 140/98 94 Room Air 10/29/16 04:00 Room Air 10/29/16 03:54 50 16 143/85 94 Room Air 10/29/16 01:40 36.4 58 16 122/85 94 Room Air 10/29/16 01:25 36.6 63 16 118/84 94 10/29/16 00:43 62 16 121/85 Room Air 10/28/16 23:23 62 16 121/85 96 Room Air 10/28/16 22:20 Room Air 10/28/16 22:19 Room Air 10/28/16 22:10 67 10/28/16 21:54 36.5 60 16 184/100 95 Room Air Laboratory Results 10/29/16 08:33 Red Blood Count 5.19, Mean Corpuscular Volume 85.9, Mean Corpuscular Hemoglobin 28.3, Mean Corpuscular Hemoglobin Concent 33.0, Mean Platelet Volume 11.7, Neutrophils (%) (Auto) 69.5, Lymphocytes (%) (Auto) 21.3, Monocytes (%) (Auto) 8.0, Eosinophils (%) (Auto) 0.7, Basophils (%) (Auto) 0.4, Neutrophils # (Auto) 5.04, Lymphocytes # (Auto) 1.55, Monocytes # (Auto) 0.58, Eosinophils # (Auto) 0.05, Basophils # (Auto) 0.03 10/29/16 05:15 Test 10/28/16 22:07 10/28/16 22:18 10/28/16 22:53 10/29/16 05:15 Prothrombin Time 10.1 SECONDS (9.0-12.0) Prothromb Time International Ratio 0.9 (0.9-1.1) Activated Partial Thromboplast Time 30.0 SECONDS (21.0-31.0) Partial Thromboplastin Ratio 1.2 D-Dimer 260 ug/L FEU (0-500) Estimated Average Glucose 111 mg/dl Hemoglobin A1c 5.5 % (4.5-5.6) Magnesium Level 2.0 mg/dl (1.8-2.4) Total Bilirubin 0.3 mg/dl (0.2-1) Aspartate Amino Transf (AST/SGOT) 32 U/L (15-37) Alanine Aminotransferase (ALT/SGPT) 42 U/L (12-78) Alkaline Phosphatase 84 U/L (45-117) Total Protein 7.1 gm/dl (6.4-8.2) Albumin 3.7 gm/dl (3.4-5.0) Globulin 3.4 gm/dl (2.5-4.0) Albumin/Globulin Ratio 1.1 (0.9-2) Lipase 267 U/L (73-393) Thyroid Stimulating Hormone (TSH) 1.030 uIu/ml (0.300-4.500) Bedside Troponin I 0.020 ng/ml (0-0.045) Urine Color YELLOW Urine Appearance CLEAR (CLEAR) Urine pH 5.5 (4.5-7.5) Urine Specific Potter 1.027 (1.000-1.030) Urine Protein 1+ (NEG) Urine Glucose (UA) NEG (NEG) Urine Ketones TRACE (NEG) Urine Occult Blood NEG (NEG) Urine Nitrite NEG (NEG) Urine Bilirubin NEG (NEG) Urine Urobilinogen NEG (NEG) Urine Leukocyte Esterase NEG (NEG) Urine WBC (Auto) 1-5 /hpf (0-5) Urine RBC (Auto) 0-4 /hpf (0-4) Urine Hyaline Casts (Auto) 0 /lpf (0-5) Urine Epithelial Cells (Auto) 10-20 /lpf (0-5) Urine Bacteria (Auto) NEG (NEG) Anion Gap 6.0 mmol/L (3-11) Est Creatinine Clear Calc Drug Dose 124.4 ml/min Estimated GFR () 115.5 Estimated GFR (Non- 99.7 BUN/Creatinine Ratio 18.0 (10-20) Calcium Level 8.1 mg/dl (8.5-10.1) Triglycerides Level 331 mg/dl (0-150) Cholesterol Level 236 mg/dl (0-200) HDL Cholesterol 31 mg/dl LDL Cholesterol, Calculated 139 mg/dl VLDL Cholesterol, Calculated 66 mg/dl Cholesterol/HDL Ratio 7.6 Test 10/29/16 05:28 10/29/16 08:33 10/29/16 08:59 White Blood Count 7.26 K/uL (4.8-10.8) Red Blood Count 5.19 M/uL (4.7-6.1) Hemoglobin 14.7 g/dL (14.0-18.0) Hematocrit 44.6 % (42-52) Mean Corpuscular Volume 85.9 fL (80-100) Mean Corpuscular Hemoglobin 28.3 pg (25-34) Mean Corpuscular Hemoglobin Concent 33.0 g/dl (32-36) Platelet Count 157 K/uL (130-400) Mean Platelet Volume 11.7 fL (7.4-10.4) Neutrophils (%) (Auto) 69.5 % Lymphocytes (%) (Auto) 21.3 % Monocytes (%) (Auto) 8.0 % Eosinophils (%) (Auto) 0.7 % Basophils (%) (Auto) 0.4 % Neutrophils # (Auto) 5.04 K/uL (1.4-6.5) Lymphocytes # (Auto) 1.55 K/uL (1.2-3.4) Monocytes # (Auto) 0.58 K/uL (0.11-0.59) Eosinophils # (Auto) 0.05 K/uL (0-0.5) Basophils # (Auto) 0.03 K/uL (0-0.2) RDW Standard Deviation 42.2 fL (36.4-46.3) RDW Coefficient of Variation 13.3 % (11.5-14.5) Immature Granulocyte % (Auto) 0.1 % Immature Granulocyte # (Auto) 0.01 K/uL (0.00-0.02) Total Creatine Kinase 199 U/L (39-308) Creatine Kinase MB 5.1 ng/ml (0.5-3.6) Creatine Kinase MB Ratio 2.6 (0-3.0) Troponin I 0.480 ng/ml (0-0.045) Kaolin Activated Coagulation Time 307 SECONDS (94-140) Assessment and Plan 56-year-old male with past medical history of hypertension and hyperlipidemia controlled with diet and lifestyle modifications presented to the ER with complaints of a vague chest discomfort which started last night . Status post cardiac catheterization with stents for 100% occlusion of mid RCA . STEMI status post cardiac catheterization with drug-eluting stent in mid RCA - Currently on Integrilin - Continue aspirin 81 mg daily and - Metoprolol tartrate 25 mg twice daily, atorvastatin 80 mg daily, lisinopril 5 mg daily added - Troponins trended - Cardiac rehabilitation upon discharge Hypertension: - Diet controlled - Continue metoprolol and lisinopril Hyperlipidemia: - Continue atorvastatin PT/OT Full code DVT prophylaxis: Currently on Integrilin Disposition: Monitor in ICU Resident Tracking Resident Involvement: Resident Care Provided Care Provided: Adult Hospital Medicine Reviewed: Pt Seen/Exam by Me History Resident Physician Supervision Note: I interviewed and examined the patient. Discussed with Dr. Zazueta and agree with findings and plan as documented in the note. Any exceptions or clarifications are listed here: Patient had a heart alert called this morning after his routine EKG showed evidence of STEMI and he was having persistent chest pain. I saw him briefly at that time after cardiology had evaluated him and determined he needed urgent cardiac catheterization. He was taken urgently for cardiac catheterization and had a drug-eluting stent placed in the mid RCA which had 100% occlusion. His troponin went up to 79 later in the afternoon. He is currently stable and doing well in the ICU when I came back to see him later in the evening. Vitals reviewed, no significant events on telemetry No acute distress, AAO 3 RRR, no MGR Clear to auscultation bilaterally, breathing unlabored Positive bowel sounds soft nontender nondistended Extremities no edema 56-year-old male with history of hyperlipidemia and hypertension tension controlled with diet and exercise, here with STEMI. -Started on aspirin, Integrilin and we'll switch likely to aspirin and Plavix after that -Started lisinopril and metoprolol, high-dose statin -Monitor on telemetry for arrhythmias and monitor electrolytes are abnormalities /reperfusion -Appreciate cardiology management -Will need cardiac rehabilitation as an outpatient Documented By: Juliet Calderon
[2016-10-29] MEDS: EPTIFIBATIDE INJ 75 MG PREMIXED IV SCH ×3 (11:02→22:01)
[2016-10-29] MEDS: METOPROLOL TARTRATE 25 MG TAB PO SCH ×2 (11:51→20:52)
[2016-10-29] MEDS: LISINOPRIL 5 MG TAB PO SCH (11:51)
--- NOTE | 2016-10-29 13:31 | Critical Care Consultation ---
Critical Care Consultation Date of Consultation: October 29, 2016. Attending Physician: Gennaro West M.D. Reason for Consultation: STEMI, status post cardiac catheterization with stenting History of Present Illness Is a very pleasant 56-year-old male, who presents for evaluation of chest pain overnight. The patient notes that yesterday at approximately 20 00, AB and experiencing a vague chest discomfort, just slightly to the left of the sternum. He did not describe it as a pain per se. He did not attribute a severity. The discomfort did not worsen with exertion, did not improve with rest. It was associated with radiating discomfort to his left shoulder and upper arm, again not noted to be "painful". He does note that the chest discomfort is not a new phenomenon to him, but the radiation to the left arm was which concerned him and prompted him to come to the emergency department for further evaluation. He denies symptoms of diaphoresis, chest pain, palpitations, lightheadedness, syncope. He has not had any recent history of orthopnea or lower extremity swelling. He states that prior to 2 months ago he is generally quite active and would average walking or jogging up to 35 miles per week, though he admits that in the past 2 months he has not been as active because of the weather. In regards to his chest discomfort, he states that it is not a new phenomenon for him, that he has noticed it on and off for the past several months. He says it comes on approximately once every several weeks, but again is not associated with exertion or rest. He does state that his PCP as previously managed him for hypercholesterolemia and hypertension. At one point he was on lisinopril, but he was able to control his blood pressure with exercise and weight loss alone. He was also on statin therapy, but admits that he did not refill his prescription renewal. He denies ever having had a history of diabetes, the states that he did present to have elevated blood sugars that were not in the diabetic range, and has never been on insulin or anti-glycemic medications. Mr. wan also does not have a history of OK or coronary artery disease. He is a lifelong nonsmoker, and states that he drinks 3 units of alcohol per week. In regards to family history, his grandfather had an OK at the age of 60. States his father had a stent placed in his early 60s, and then eventually had quadruple bypass in his late 60s. He ultimately of cancer. States that his mother had a stent placed in her early 70s, and also had a history of hypercholesterolemia. On arrival to the ED and initial troponin was negative, and there are no acute changes on his EKG. Upon admission he states that his chest pain resolved completely. However he was awoken early in the morning with chest discomfort with radiation to the right arm. An EKG did show acute ST elevation in the inferior leads and a repeat troponin was elevated at 0.146. Cardiology was consulted, and a heart alert was called. The patient was brought to the cardiac [facility] at approximately 8:30 this morning. He had 100% occlusion of his mid RCA, and a drug-eluting stent was successfully deployed. He was brought up to the ICU on an Integrilin infusion. Currently states that he is doing well, and denies having any chest pain, shortness of breath, palpitations. Symptoms in his left shoulder and arm have resolved. Family History As stated in the history of present illness Social History Smoking Status: Never Smoker Smokeless Tobacco Use: No Alcohol Use: occasionally (3-4 drinks beer/wine/week) Drug Use: none Allergies Coded Allergies: Penicillins (Unverified Allergy, Unknown, CHILD HERRERA ALLERGY, 10/28/16) Home Medications No Active Prescriptions or Reported Meds Current Inpatient Medications Current Inpatient Medications Medications (Trade) Dose Ordered Sig/Sera Route Start Time Stop Time Status Last Admin Dose Admin Nitroglycerin (Nitrostat Tab) 0.4 mg UD PRN SL 10/29/16 01:00 11/28/16 00:59 10/29/16 04:12 0.4 MG Aspirin 81 mg 81 mg QAM PO 10/29/16 09:00 11/28/16 08:59 10/29/16 07:28 81 MG Sodium Chloride (Nss 1000ml) 1,000 ml @ 125 mls/hr Q8H IV 10/29/16 02:00 11/28/16 01:59 10/29/16 11:01 125 MLS/HR Miscellaneous (Iv Fluids Completed) 1 ea PRN PRN N/A 10/29/16 01:45 10/29/17 01:44 Atorvastatin Calcium (Lipitor Tab) 80 mg QAM PO 10/29/16 09:00 11/28/16 08:59 10/29/16 07:28 80 MG Nitroglycerin (Nitroglycerin 2% Oint) 1 inch Q6 EXT 10/29/16 06:45 11/28/16 06:44 Atropine Sulfate (Atropine Sulfate 0.1MG/Ml Inj) 0.5 mg ONE PRN IV 10/29/16 08:45 11/28/16 08:44 Ondansetron HCl (Zofran Inj) 4 mg Q6H PRN IV 10/29/16 08:45 11/28/16 08:44 Clopidogrel Bisulfate (plAVix TAB) 75 mg QAM PO 10/29/16 11:00 11/28/16 10:59 Future hold Metoprolol Tartrate (Lopressor Tab) 25 mg Q12 PO 10/29/16 11:00 11/28/16 10:59 10/29/16 11:51 25 MG Lisinopril (Zestril Tab) 5 mg QAM PO 10/29/16 11:00 11/28/16 10:59 10/29/16 11:51 5 MG Acetaminophen (Tylenol Tab) 650 mg Q4H PRN PO 10/29/16 08:45 11/28/16 08:44 Morphine Sulfate 2 mg 2 mg Q5M PRN IV 10/29/16 08:45 11/12/16 08:44 Lorazepam 0.5 mg/ Syringe 0.25 ml @ 1 mls/min Q6H PRN IV 10/29/16 08:45 11/28/16 08:44 Eptifibatide (Integrilin Inj) 100 ml @ 15.9 mls/hr Q6H18M IV 10/29/16 10:30 10/30/16 05:00 10/29/16 11:02 15.9 MLS/HR Miscellaneous (Stop Order) 1 ea TODAY@0500 ONCE N/A 10/30/16 05:00 10/30/16 05:01 Review of Systems A 10 point review of systems was otherwise negative unless stated above in the history of present illness Physical Exam Date Time Temp Pulse Resp B/P Pulse Ox O2 Delivery O2 Flow Rate FiO2 10/29/16 12:00 37.0 74 17 125/87 95 Room Air 10/29/16 12:00 98 Room Air 10/29/16 11:45 69 18 141/100 96 10/29/16 11:30 81 21 135/102 97 10/29/16 11:15 63 14 123/88 96 10/29/16 11:00 69 16 127/95 96 10/29/16 10:45 72 16 127/91 96 10/29/16 10:30 75 27 133/95 96 10/29/16 10:15 84 22 144/101 96 10/29/16 10:09 86 15 124/95 95 10/29/16 10:00 36.8 83 17 124/95 96 Room Air 10/29/16 09:45 95 18 135/99 95 Room Air 10/29/16 09:30 96 18 130/86 95 Room Air 10/29/16 08:24 36.5 63 16 140/98 94 Room Air 10/29/16 08:00 Room Air 10/29/16 07:55 36.5 63 16 140/98 94 Room Air 10/29/16 04:00 Room Air 10/29/16 03:54 50 16 143/85 94 Room Air 10/29/16 01:40 36.4 58 16 122/85 94 Room Air 10/29/16 01:25 36.6 63 16 118/84 94 10/29/16 00:43 62 16 121/85 Room Air 10/28/16 23:23 62 16 121/85 96 Room Air 10/28/16 22:20 Room Air 10/28/16 22:19 Room Air 10/28/16 22:10 67 10/28/16 21:54 36.5 60 16 184/100 95 Room Air General Appearance: well-appearing, WD/WN Head: normocephalic, atraumatic Eyes: PERRLA, sclerae normal ENT: normal ear exam, normal nasal exam, normal mouth exam Neck: normal range of motion, no tenderness, supple Respiratory: breath sounds normal, clear to auscultation Cardiovasular: normal S1S2, no murmur, no gallop, no rub Abdomen: non tender, normal bowel sounds, no rebound Back: no midline tenderness, no CVA tenderness Upper Extremities: no edema Lower Extremities: no edema, other (right radial TR band) Laboratory Results Last 24 Hours Test 10/28/16 22:07 10/28/16 22:18 10/28/16 22:53 10/29/16 05:15 White Blood Count 6.70 K/uL 5.84 K/uL Red Blood Count 5.04 M/uL 4.73 M/uL Hemoglobin 14.5 g/dL 13.4 g/dL Hematocrit 42.5 % 40.8 % Mean Corpuscular Volume 84.3 fL 86.3 fL Mean Corpuscular Hemoglobin 28.8 pg 28.3 pg Mean Corpuscular Hemoglobin Concent 34.1 g/dl 32.8 g/dl Platelet Count 187 K/uL 155 K/uL Mean Platelet Volume 10.8 fL 10.9 fL Neutrophils (%) (Auto) 52.7 % Lymphocytes (%) (Auto) 32.2 % Monocytes (%) (Auto) 11.6 % Eosinophils (%) (Auto) 2.4 % Basophils (%) (Auto) 1.0 % Neutrophils # (Auto) 3.52 K/uL Lymphocytes # (Auto) 2.16 K/uL Monocytes # (Auto) 0.78 K/uL Eosinophils # (Auto) 0.16 K/uL Basophils # (Auto) 0.07 K/uL RDW Standard Deviation 39.5 fL 42.2 fL RDW Coefficient of Variation 13.0 % 13.2 % Immature Granulocyte % (Auto) 0.1 % Immature Granulocyte # (Auto) 0.01 K/uL Prothrombin Time 10.1 SECONDS Prothromb Time International Ratio 0.9 Activated Partial Thromboplast Time 30.0 SECONDS Partial Thromboplastin Ratio 1.2 D-Dimer 260 ug/L FEU Sodium Level 142 mmol/L 144 mmol/L Potassium Level 3.7 mmol/L 3.8 mmol/L Chloride Level 106 mmol/L 108 mmol/L Carbon Dioxide Level 28 mmol/L 30 mmol/L Anion Gap 8.0 mmol/L 6.0 mmol/L Blood Urea Nitrogen 15 mg/dl 14 mg/dl Creatinine 0.86 mg/dl 0.79 mg/dl Est Creatinine Clear Calc Drug Dose 114.3 ml/min 124.4 ml/min Estimated GFR () 111.6 115.5 Estimated GFR (Non- 96.3 99.7 BUN/Creatinine Ratio 17.1 18.0 Random Glucose 150 mg/dl 109 mg/dl Estimated Average Glucose 111 mg/dl Hemoglobin A1c 5.5 % Calcium Level 8.5 mg/dl 8.1 mg/dl Magnesium Level 2.0 mg/dl Total Bilirubin 0.3 mg/dl Aspartate Amino Transf (AST/SGOT) 32 U/L Alanine Aminotransferase (ALT/SGPT) 42 U/L Alkaline Phosphatase 84 U/L Troponin I 0.023 ng/ml 0.146 ng/ml Total Protein 7.1 gm/dl Albumin 3.7 gm/dl Globulin 3.4 gm/dl Albumin/Globulin Ratio 1.1 Lipase 267 U/L Thyroid Stimulating Hormone (TSH) 1.030 uIu/ml Bedside Troponin I 0.020 ng/ml Urine Color YELLOW Urine Appearance CLEAR Urine pH 5.5 Urine Specific [place] 1.027 Urine Protein 1+ Urine Glucose (UA) NEG Urine Ketones TRACE Urine Occult Blood NEG Urine Nitrite NEG Urine Bilirubin NEG Urine Urobilinogen NEG Urine Leukocyte Esterase NEG Urine WBC (Auto) 1-5 /hpf Urine RBC (Auto) 0-4 /hpf Urine Hyaline Casts (Auto) 0 /lpf Urine Epithelial Cells (Auto) 10-20 /lpf Urine Bacteria (Auto) NEG Triglycerides Level 331 mg/dl Cholesterol Level 236 mg/dl HDL Cholesterol 31 mg/dl LDL Cholesterol, Calculated 139 mg/dl VLDL Cholesterol, Calculated 66 mg/dl Cholesterol/HDL Ratio 7.6 Test 10/29/16 05:28 10/29/16 08:33 10/29/16 08:59 White Blood Count 7.26 K/uL Red Blood Count 5.19 M/uL Hemoglobin 14.7 g/dL Hematocrit 44.6 % Mean Corpuscular Volume 85.9 fL Mean Corpuscular Hemoglobin 28.3 pg Mean Corpuscular Hemoglobin Concent 33.0 g/dl Platelet Count 157 K/uL Mean Platelet Volume 11.7 fL Neutrophils (%) (Auto) 69.5 % Lymphocytes (%) (Auto) 21.3 % Monocytes (%) (Auto) 8.0 % Eosinophils (%) (Auto) 0.7 % Basophils (%) (Auto) 0.4 % Neutrophils # (Auto) 5.04 K/uL Lymphocytes # (Auto) 1.55 K/uL Monocytes # (Auto) 0.58 K/uL Eosinophils # (Auto) 0.05 K/uL Basophils # (Auto) 0.03 K/uL RDW Standard Deviation 42.2 fL RDW Coefficient of Variation 13.3 % Immature Granulocyte % (Auto) 0.1 % Immature Granulocyte # (Auto) 0.01 K/uL Total Creatine Kinase 199 U/L Creatine Kinase MB 5.1 ng/ml Creatine Kinase MB Ratio 2.6 Troponin I 0.480 ng/ml Kaolin Activated Coagulation Time 307 SECONDS Diagnostic Results Lesion Segment Name: Mid RCA Culprit Artery: Yes Stenosis Prior to Rx (%): 100 Chronic Total Occlusion: No IVUS: No FFR: No Pre-Procedure MIKE Flow: 0 Previously Treated Lesion: No Lesion Complexity: Non-High/Non-C Thrombus Present: Yes Bifurcation Lesion: No Guidewire Across Lesion: Yes Guidewire: Stenosis Post-Procedure (%): 0-10 Post-Procedure MIKE Flow: 3 Type of Device(s): Medtronic 4 X 18 mm Resolute Integrity AYANNA Interpretation Summary * Conclusions -- * Left ventricular systolic function is normal. * There are regional wall motion abnormalities as specified. * The right ventricular systolic function is mild to moderately reduced. * There is mild mitral regurgitation. Procedure Details * The study was technically adequate. Left Ventricle * The left ventricle is normal in size. * There is normal left ventricular wall thickness. * Left ventricular systolic function is normal. * Ejection Fraction = 50-55%. * There are regional wall motion abnormalities as specified. * Basal inferior wall is mildly hypokinetic Assessment & Plan 56-year-old male, with remote history of hypertension hyperlipidemia, not currently on pharmacological therapy prior to arrival, who presents to the ICU postcardiac catheterization and stenting of the mid RCA for a total occlusion. He is currently on an Integrilin infusion which is being managed by cardiology. The patient is currently doing well, and denies any symptoms at this time. He is also hemodynamically stable on arrival to the ICU. Goal for him at this point is secondary prevention. Cardiology is following him at this time . Problem list includes - New diagnosis coronary artery disease - Acute an STEMI, complete occlusion of the mid RCA, AYANNA stent placement - History of Hypertension - History of Hyperlipidemia Our plan for him is as follows: NEUROLOGICAL - GCS: 15 - CAM-ICU negative CARDIAC - BP: 120-140 systolic, meeting map goal >65 - No vasopressor support - No IV fluids STEMI, status post cardiac catheterization and AYANNA stent placement to the mid RCA - ICU monitoring for post OK complications including: Arrhythmia, congestive heart failure, active chest pain, re-infarction - Cardiology is following; recommendations appreciated - Patient has following medications on board for secondary prevention: Toprol tartrate 25 mg by mouth every 12 Lisinopril 5 mg by mouth every morning Atorvastatin 80 mg by mouth every morning Aspirin 81 daily RESPIRATORY - RR: 14-17 SpO2: Greater than 95% - Respiratory status stable at this time - No previous history of COPD or asthma - Lifelong nonsmoker, we'll continue to encourage nonsmoking GASTROINTESTINAL - Diet: AHA, type II diabetic diet - GI Prophylaxis: Protonix 40 mg by mouth dailyproton - Bowel regimen: None at this time, we'll monitor for bowel movements RENAL//ENDOCRINE - Monitor daily standing weights in the morning strict I's and O's - Cr: 0.79, at baseline (limited labs in the EMR) - Electrolytes: Mild hypocalcemia 8.1. Will follow daily calcium level but will not take any action this time - IV Fluids: None - Hemoglobin A1c 5.5 HEME/ID - Afebrile, WBC 7.2 - Hb/Hct 14.7/44.6 - DVT Prophylaxis: Integrilin infusion LINES/IV ACCESS - Left anterior forearm 18-gauge CODE STATUS - Full Code DISPOSITION - OT/PT Resident Physician Supervision Note: Dr. Peterson was resident physician during care of patient. I separately evaluated patient and did history and exam. I discussed the case with the resident and generally agree with the findings and plan. S/P STEMI with AYANNA. On Integrilin. Documented By: Andrew Forbes DO
[2016-10-29 18:03] LABS: CKMB/CK RATIO 11.4 (0-3.0)
--- NOTE | 2016-10-29 21:09 | CARDIOLOGY CONSULTATION ---
DATE OF CONSULTATION: 10/29/2016 PRIMARY PHYSICIAN: Catrachito Doyle M.D. REFERRING PHYSICIAN: Ranjit Sharma M.D.; Gennaro West M.D. ATTENDING PHYSICIAN: Gennaro West M.D. CONSULTATION: Enrique Gramajo M.D. HISTORY OF PRESENT ILLNESS: The patient is a 56-year-old white male. He presented to the Emergency Department on the evening of October 28 with complaint of retrosternal, dull to aching pain which radiated into left side of his neck as well as his left upper arm. The pain in his arm was a throbbing type pain. The episodes were lasting for several minutes at a time. He was having associated dizziness and nausea. There is no exertional component to the discomfort. On October 28, he did feel that he was not himself. He had sensation of malaise and fatigue. He states that over the past 6 months, he had been experiencing similar type symptoms. These could occur months. He had not noted any change in the intensity, frequency, or duration of the symptoms until yesterday. The discomfort in his arm is also accompanied by sensation of paresthesias in the arm. He had not noted any recent decrease in his exercise tolerance. No unusual dyspnea with exertion. No dyspnea at rest. No orthopnea, PND, palpitations, syncope, or peripheral edema. He denies any prior history of any type of heart disease. He denies any history of diabetes mellitus. History of hypertension and dyslipidemia, which was controlled with exercise and weight loss in the past. At the time of admission, he was on no medications. The patient was evaluated on the evening of October 28 in the Emergency Department. An electrocardiogram performed at 22:01 revealed normal sinus rhythm. Normal ST segments and T waves. His initial troponin I was 0.023. The patient was admitted to the telemetry unit. He reported to the nursing staff at 3:55 a.m. that he was having worsened pain in his left arm extending all the way down to his fingers, it is what he reported to me. The pain was a throbbing type pain. He states to me that he was also experiencing continued chest discomfort, although he did not state this to the nursing staff. A repeat electrocardiogram was performed at 4:05 a.m. This electrocardiogram reviewed by me. Reveals sinus bradycardia at a rate of [address] segment elevations present in leads I, II, aVF. ST depressions in leads I and aVL. The nursing staff contacted the [facility] resident who saw the patient in his room. This was documented in nursing notes. Intravenous morphine was ordered and subsequently administered. The patient states that after receiving the morphine, his chest and arm discomfort decreased. However, he states that it persisted throughout the rest of the night and into this morning. No associated dyspnea. A troponin I performed at 5:15 a.m. returned at 0.146. An order for routine cardiology consultation was placed at 6:24 a.m. The case was not discussed with the advertising photographer distribution clerk. No verbal communication with advertising photographer. A repeat electrocardiogram was performed as part of routine order set at 6:46 a.m. It revealed sinus bradycardia, increasing ST elevations in the inferior leads and ST depressions in leads I and aVL. On morning [facility] cardiology service rounds, it was determined by the [facility] Cardiology staff that a routine consult had been requested on this patient.This was via EHR. When his chart was reviewed by me, the above electrocardiograms were noted. I then immediately went to see the patient. Until I reviewed the records, no [facility] advertising photographer was aware of this patient's ECG findings or his clinical condition.When I arrived in his room he was still complaining of mild chest discomfort radiating into his left arm. A repeat electrocardiogram was performed at 8:19 a.m. It revealed continued inferior ST segment elevations in leads II, III, aVF and ST depressions one in aVL. When I arrived in the room he was in the process of undergoing a routine ordered echocardiogram. This was reviewed by me and showed inferior and posterior hypokinesis. Good overall LV systolic function. When I arrived in the room I asked the pearl technician to stop the echo at that time.After his electrocardiogram was performed, a heart alert was called by me. The procedure, risk, benefits, and alternatives of cardiac catheterization and possible coronary intervention were discussed with the patient. He readily agreed to the procedure. At the time of him going to the catheterization lab, his medications included aspirin 81 mg daily, atorvastatin 80 mg daily, and nitroglycerin ointment 1 inch q. 6 hours.PRN morphine. The patient was taken emergently to the cardiac catheterization laboratory after a heart alert was called. The procedure was performed via a 6-Divehi sheath in the right radial artery. Diagnostic angiography revealed a right dominant circulation. There was a total mid RCA occlusion. Left coronary artery had mild atherosclerotic disease. There was MIKE 0 flow in the RCA past the site of occlusion. A guidewire was easily passed into the distal RCA. MIKE 2 flow was established with passage of the wire. PTCA was then performed with a 3 mm diameter compliant balloon. MIKE 3 flow was established into the distal RCA and its branches. A severe mid RCA stenosis was noted. A 4 x 18 mm Medtronic Resolute drug-eluting stent was then deployed in the mid RCA. Deployed at the rated burst pressure. Following stent deployment, there remained MIKE 3 flow in the distal RCA. There was a small RV branch arising from the stented region which had a MIKE 1 flow. There was no evidence of dissection, thrombus, perforation, or a distal embolic event. The residual stenosis at the stent site was 0-10%. Following reperfusion of the RCA, the patient did develop a decrease in his blood pressure as well as sinus bradycardia. This was treated with administration of 1 mg of intravenous atropine and a boluse of normal saline. With the atropine, his heart rate increased appropriately. His blood pressure subsequently normalized. Thereafter, he had no significant arrhythmias. No bradyarrhythmias. No ventricular arrhythmias. Following intervention to the RCA, his chest discomfort and arm discomfort resolved. The ST segment elevations on the monitored leads improved. During the procedure, he received intravenous heparin and Integrilin. A therapeutic activated clotting time was documented. Following the procedure, he was to remain on intravenous Integrilin for approximately 18 hours. Following the procedure, he was transferred from the cardiac catheterization lab to the intensive care unit. The patient has been seen by me twice since the interventional procedure in his ICU room. He denies any residual chest or arm discomfort. No orthopnea or dyspnea. No palpitations or lightheadedness. No pain at his right radial catheterization site. No bleeding at his right radial catheterization site. No right hand pain. No neurologic symptoms. PAST MEDICAL HISTORY: 1. History of hypertension and dyslipidemia, treated with diet and exercise in the past. 2. No history of diabetes mellitus. 3. He denies any prior hospitalizations. 4. At the time of admission, he denied any active medical problems. However, he had not been seen by his primary care provider for at least 2 years. MEDICATIONS AT TIME OF ADMISSION: None. SOCIAL HISTORY: The patient is and lives with his . Three adult children. He has never smoked cigarettes. Occasional use of alcohol. 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 ALLERGIES: PENICILLIN. FAMILY HISTORY: His father had evidence of coronary artery disease when he was in his 60s. He subsequently underwent CABG surgery. His mother had a myocardial infarction in her 80s. No history of coronary artery disease in siblings. REVIEW OF SYSTEMS: 1. As above. 2. The patient states for the past few months he has been experiencing frontal and temporal headaches. He describes these as migraine headaches. No prior history of such headaches. These can occur on almost a daily basis. Relieved with ibuprofen. 3. No focal motor weakness. 4. No claudication type complaints. 5. Other than headaches, no other HEENT complaints. 6. No pulmonary complaints. 7. Normally no GI complaints. Recently good appetite. No abdominal pain. 8. No bleeding complaints. 9. No urinary complaints. 10. Other than the malaise and fatigue yesterday, no other constitutional complaints. 11. No fevers or chills. 12. No skin rash type complaints. PHYSICAL EXAMINATION: VITAL SIGNS: When the patient was seen by me this morning in his telemetry unit room, his blood pressure was 140/98, pulse 63, oral temperature 36.5, pulse oximetry on room air 94%. GENERAL: He is lying in his bed in undergoing an echocardiogram at the time of my arrival to the room. He was in no distress. HEAD: Normal. EYES: Pupils equal and round. Anicteric. Conjunctivae normal. No xanthelasma. NECK: No jugular venous distension. Carotids 2/2 bilaterally. Normal upstroke. No bruits. LUNGS: Normal respiratory effort. Clear. No rales or wheezes. HEART: PMI not palpable. Regular rate and rhythm. S1, S2 normal. No S3 or S4. No murmur or rub. ABDOMEN: Soft. Nontender. No palpable masses or organomegaly. No bruits. EXTREMITIES: No pretibial edema. No cyanosis or clubbing. NEUROLOGIC: Alert and oriented x3. Motor grossly intact. PSYCHIATRIC: Affect normal. PULSES: Distal pulses in all extremities strongly palpable. SKIN: No rashes. DATA: Electrocardiograms as documented above. All reviewed by me. Echocardiogram performed this morning prior to cardiac catheterization and PCI, reviewed by me revealed low normal overall LV systolic function. Basal inferior hypokinesis. Chest x-ray last evening, reviewed by me showed no infiltrate or congestive heart failure. Labs this morning with sodium 144, potassium 3.8, chloride 108, carbon dioxide 30, BUN 14, creatinine 0.79, random glucose 109. Troponin I at 5:15 a.m. was 0.146; at 8:33 a.m. 0.480. Lipid profile this morning with triglycerides 331, total cholesterol 236, calculated LDL 139, HDL 31. Hemoglobin A1c performed last evening was 5.5. Labs last night with albumin 3.7, ALT 42, AST 32, magnesium 2.0. CBC this morning with WBC 5.84, hemoglobin 13.4, hematocrit 40.8, platelet count 155. LABORATORY DATA: Performed post-PCI revealed total CK 199 with an MB of 5.1. Troponin 0.480. Platelet count post-Integrilin 157. Hemoglobin 14.7, hematocrit 44.6. ASSESSMENT: 1. Acute inferior myocardial infarction. 2. 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 3. Successful percutaneous coronary intervention to right coronary artery occlusion with deployment of 4 x 18 mm drug-eluting stent. 4. Resolution of chest and arm discomfort following percutaneous coronary intervention. Post-percutaneous coronary intervention electrocardiogram with normal sinus rhythm at a rate of 76 beats per minute. Inferior Q-waves. Resolution of ST segment elevations in inferior leads, compared to earlier electrocardiogram. Resolution of ST segment depressions. Changes consistent with evolving inferior myocardial infarction. 5. Transient sinus bradycardia and hypotension following reperfusion of the right coronary artery. Successful treatment with bolus of normal saline and administration of intravenous atropine. 6. No significant ventricular arrhythmias. Monitor history since admission reviewed by me. This includes before intervention and prior to intervention. Most complex ventricular ectopy has been ventricular couplets. No ventricular tachycardia. 7. Good overall left ventricular systolic function on echocardiography pre-percutaneous coronary intervention. Post-percutaneous coronary intervention left ventricular angiography revealed similar findings. Left ventricular ejection fraction approximately 50%. Inferior hypokinesis. 8. No evidence of congestive heart failure on exam or chest x-ray. 9. No cerebrovascular or peripheral vascular complaints. 10. Post-Integrilin, platelet count stable compared to pre-Integrilin. 11. No significant cardiac complications and no vascular complications with the cardiac catheterization procedure and coronary interventional procedure. 12. Coronary artery disease risk factors include dyslipidemia. He has elevated triglycerides, low HDL, and elevated LDL. Risk factors also include hypertension and a family history of coronary artery disease. 13. Recent development over the past few months of migraine headaches. This is by the patient's description. It caused some migraine headaches. These have not has yet been evaluated by his primary care provider. He had planned on contacting his primary care provider to discuss these headaches. PLAN AND RECOMMENDATIONS: 1. Continue intravenous fluids. 2. Intravenous Integrilin for at least 18 hours. 3. Post-PCI, he was given 600 mg of oral clopidogrel. He should remain on dual antiplatelet therapy. Ideally for at least 1 year. This would be clopidogrel with aspirin. If necessary, could switch him to a different alternative antiplatelet agent from clopidogrel. Aspirin therapy indefinitely. 4. Continue atorvastatin. 5. Discontinue nitro paste. 6. Lisinopril 5 mg daily. Titrate dose upwards as necessary to control blood pressure. 7. Low dose metoprolol 25 mg b.i.d. If he tolerates this well, can be switched to metoprolol succinate ER 50 mg once daily. 8. Increase activities as tolerated. The above assessment and recommendations were discussed with Dr. Zazueta. She is the family practice resident assuming the patient's care this morning. Until she arrived in the room at the time of my visit with the patient she had not been involved in his care. Discussed with the intensive care team. Discussed with the nursing staff. Discussed with the patient and his . It was discussed with the patient the different medications that he was placed on today. The indications for all these were extensively discussed with him by me. It was recommended to him that he undergo cardiac rehabilitation. It was recommended that in the future he attempt to weight loss through a diet and exercise. The benefits of CAD risk factor modification were extensively discussed with him. This would include weight loss, daily exercise regimen, and a heart-healthy diet. The findings of the cardiac catheterization and results of the interventional procedure were extensively discussed with the patient and his . Thank you for asking us to see this patient in cardiology consultation. KAYLIN
[2016-10-30] VITALS (18 sets, daily range): BP systolic 98–138; BP diastolic 56–91; PULSE 56–77; TEMP 36.6–37; O2SAT 93–99
[2016-10-30 01:46] LABS: CKMB/CK RATIO 8.7 (0-3.0)
[2016-10-30] MEDS: SODIUM CHLORIDE 0.9% 1000ML 1,000 ML IV SCH ×2 (02:00→10:00)
[2016-10-30] MEDS ORDERED: Integrelin infusion --> STOP ORDER ONE (05:00)
[2016-10-30] MEDS: NITROGLYCERIN 2% OINTMENT 30GM TUBE EXT SCH ×2 (06:00)
[2016-10-30 06:01] LABS: BASO % 0.6 %; BASO ABS # 0.04 K/uL (0-0.2); COMPLETE YES; EOS % 1.9 %; HEMATOCRIT 38.3 % (42-52); IG% 0.1 %; LYMPH ABS # 1.95 K/uL (1.2-3.4); MEAN CELL VOLUME 86.1 fL (80-100); MEAN CORPUSCULAR HEMOGLOBIN 28.1 pg (25-34); MEAN CORPUSCULAR HGB CONC 32.6 g/dl (32-36); MEAN PLATELET VOLUME 11.4 fL (7.4-10.4); NEUT % 57.4 %; PLATELET COUNT 129 K/uL (130-400); RED BLOOD COUNT 4.45 M/uL (4.7-6.1); WHITE BLOOD COUNT 6.73 K/uL (4.8-10.8)
[2016-10-30 06:42] LABS: BUN/CREATININE RATIO 17.1 (10-20); CALCIUM 7.7 mg/dl (8.5-10.1); CREATININE 0.76 mg/dl (0.60-1.40)
[2016-10-30] MEDS: METOPROLOL TARTRATE 25 MG TAB PO SCH ×2 (08:50→20:36)
[2016-10-30] MEDS: ASPIRIN 81 MG ECTAB PO SCH (08:50)
[2016-10-30] MEDS: ATORVASTATIN 40 MG TAB PO SCH (08:50)
[2016-10-30] MEDS: CLOPIDOGREL BISULFATE 75 MG TAB PO SCH ×2 (08:51→09:00)
[2016-10-30] MEDS: PANTOprazole SOD 40 MG TAB PO SCH (08:51)
[2016-10-30] MEDS: LISINOPRIL 5 MG TAB PO SCH (08:52)
--- NOTE | 2016-10-30 14:03 | Cardiology Follow-Up ---
Subjective Subjective Date of Service: October 30, 2016. Pt evaluation today including: conversation w/ patient, conversation w/ family , physical exam, chart review, lab review, review of studies, conversation w/ management consultant, review of inpatient medication list Additional Details: Patient feeling well. No chest pain overnight. No new complaints. Tele reviewed -- rare PVCs, NSVT 4 beats last night Review of Systems Constitutional: No chills, No fever Eyes: No worsening of vision ENT: No hearing loss Respiratory: No cough, No sputum Cardiac: No chest pain Abdomen: No nausea, No pain Musculoskeletal: No joint pain Male : No dysuria Neurologic: No memory loss, No paralysis Heme: No abnormal bleeding/bruising Objective Vital Signs Last Vital Signs Documentation Date Time Temp Pulse Resp B/P Pulse Ox O2 Delivery O2 Flow Rate FiO2 10/30/16 13:23 36.8 67 18 124/75 98 Room Air Physical Exam: General Appearance: no apparent distress Respiratory/Chest: lungs clear, normal breath sounds Cardiovascular: regular rate, rhythm, no edema Abdomen: normal bowel sounds, non tender Extremities: + pertinent finding (right artery access site without complications. Intact distal sensation, pulses. ) Neurologic/Psychiatric: alert, normal mood/affect, oriented x 3 Skin: warm/dry, no rash Assessment and Plan 1. Inferior STEMI -- post procedure day 1 2. Hypertension -- blood pressure well controlled. 3. Hyperlipidemia -- on high intensity statin Overall doing well post primary PCI for inferior STEMI yesterday. Chest pain free, hemodynamically and electrically stable. LV function preserved. From a cardiac standpoint OK for transfer to telemetry. -- continue DAPT with ASA and Clopidogrel for 1 year. -- continue metoprolol, lisinopril and statin. -- tentative plan for discharge tomorrow AM. -- follow-up with Dr. Gramajo in 2-3 weeks with discussion of cardiac rehab. Medications: Current Inpatient Medications Medications (Trade) Dose Ordered Sig/Sera Route Start Time Stop Time Status Last Admin Dose Admin Nitroglycerin (Nitrostat Tab) 0.4 mg UD PRN SL 10/29/16 01:00 11/28/16 00:59 10/29/16 04:12 0.4 MG Aspirin 81 mg 81 mg QAM PO 10/29/16 09:00 11/28/16 08:59 10/30/16 08:50 81 MG Sodium Chloride (Nss 1000ml) 1,000 ml @ 125 mls/hr Q8H IV 10/29/16 02:00 11/28/16 01:59 10/30/16 10:00 125 MLS/HR Miscellaneous (Iv Fluids Completed) 1 ea PRN PRN N/A 10/29/16 01:45 10/29/17 01:44 Atorvastatin Calcium (Lipitor Tab) 80 mg QAM PO 10/29/16 09:00 11/28/16 08:59 10/30/16 08:50 80 MG Atropine Sulfate (Atropine Sulfate 0.1MG/Ml Inj) 0.5 mg ONE PRN IV 10/29/16 08:45 11/28/16 08:44 Ondansetron HCl (Zofran Inj) 4 mg Q6H PRN IV 10/29/16 08:45 11/28/16 08:44 Clopidogrel Bisulfate (plAVix TAB) 75 mg QAM PO 10/29/16 11:00 11/28/16 10:59 Future hold 10/30/16 09:00 75 MG Metoprolol Tartrate (Lopressor Tab) 25 mg Q12 PO 10/29/16 11:00 11/28/16 10:59 10/30/16 08:50 25 MG Lisinopril (Zestril Tab) 5 mg QAM PO 10/29/16 11:00 11/28/16 10:59 10/30/16 08:52 5 MG Acetaminophen (Tylenol Tab) 650 mg Q4H PRN PO 10/29/16 08:45 11/28/16 08:44 10/30/16 03:33 650 MG Morphine Sulfate 2 mg 2 mg Q5M PRN IV 10/29/16 08:45 11/12/16 08:44 Lorazepam/Syringe (Ativan Inj/ Syringe) 0.25 ml @ 1 mls/min Q6H PRN IV 10/29/16 08:45 11/28/16 08:44 Pantoprazole Sodium (Protonix Tab) 40 mg QAM PO 10/30/16 09:00 11/29/16 08:59 10/30/16 08:51 40 MG Clopidogrel Bisulfate (plAVix TAB) 75 mg QAM PO 10/30/16 09:00 11/29/16 08:59 10/30/16 08:51 75 MG Lab Results: 10/30/16 05:40 Red Blood Count 4.45, Mean Corpuscular Volume 86.1, Mean Corpuscular Hemoglobin 28.1, Mean Corpuscular Hemoglobin Concent 32.6, Mean Platelet Volume 11.4, Neutrophils (%) (Auto) 57.4, Lymphocytes (%) (Auto) 29.0, Monocytes (%) (Auto) 11.0, Eosinophils (%) (Auto) 1.9, Basophils (%) (Auto) 0.6, Neutrophils # (Auto ) 3.86, Lymphocytes # (Auto) 1.95, Monocytes # (Auto) 0.74, Eosinophils # (Auto ) 0.13, Basophils # (Auto) 0.04 10/30/16 05:40 Test 10/30/16 00:45 10/30/16 05:40 Total Creatine Kinase 1243 U/L (39-308) Creatine Kinase MB 108.7 ng/ml (0.5-3.6) Creatine Kinase MB Ratio 8.7 (0-3.0) Troponin I 52.500 ng/ml (0-0.045) White Blood Count 6.73 K/uL (4.8-10.8) Red Blood Count 4.45 M/uL (4.7-6.1) Hemoglobin 12.5 g/dL (14.0-18.0) Hematocrit 38.3 % (42-52) Mean Corpuscular Volume 86.1 fL (80-100) Mean Corpuscular Hemoglobin 28.1 pg (25-34) Mean Corpuscular Hemoglobin Concent 32.6 g/dl (32-36) Platelet Count 129 K/uL (130-400) Mean Platelet Volume 11.4 fL (7.4-10.4) Neutrophils (%) (Auto) 57.4 % Lymphocytes (%) (Auto) 29.0 % Monocytes (%) (Auto) 11.0 % Eosinophils (%) (Auto) 1.9 % Basophils (%) (Auto) 0.6 % Neutrophils # (Auto) 3.86 K/uL (1.4-6.5) Lymphocytes # (Auto) 1.95 K/uL (1.2-3.4) Monocytes # (Auto) 0.74 K/uL (0.11-0.59) Eosinophils # (Auto) 0.13 K/uL (0-0.5) Basophils # (Auto) 0.04 K/uL (0-0.2) RDW Standard Deviation 42.5 fL (36.4-46.3) RDW Coefficient of Variation 13.3 % (11.5-14.5) Immature Granulocyte % (Auto) 0.1 % Immature Granulocyte # (Auto) 0.01 K/uL (0.00-0.02) Anion Gap 5.0 mmol/L (3-11) Est Creatinine Clear Calc Drug Dose 130.1 ml/min Estimated GFR () 117.4 Estimated GFR (Non- 101.3 BUN/Creatinine Ratio 17.1 (10-20) Calcium Level 7.7 mg/dl (8.5-10.1) Phosphorus Level 2.0 mg/dl (2.5-4.9) Magnesium Level 2.0 mg/dl (1.8-2.4)
--- NOTE | 2016-10-30 18:27 | Family Medicine Progress Note ---
Progress Note Date of Service October 30, 2016. Subjective Pt evaluation today including: conversation w/ patient, conversation w/ family , physical exam, chart review, lab review, conversation w/ medical social consultant Pain: complained about headache which is now resolved PO Intake: good Voiding: no voiding problems 56-year-old male with past medical history of hypertension and hyperlipidemia controlled with diet and lifestyle modifications presented to the ER with complaints of a vague chest discomfort which started last night . His radiation to his left arm with numbness and is associated with nausea and dizziness. He however denied any shortness of breath and palpitations. In the ER, he had no acute EKG changes and initial troponin was negative. He developed some chest discomfort in the morning which resulted in increase in his troponin to 0.146 and an EKG revealed ST elevation in the inferior leads. Cardiac catheterization was performed which revealed 100% occlusion of the mid RCA. A drug eluting stent was placed and he was transferred to the ICU . Integrilin infusion has ended. Today he states that he feels good, denies any chest pain, shortness of breath, palpitations or dizziness. Denies any bleeding from the cath site, any numbness , tingling of his fingers. He stated that he had a headache overnight which was somewhat relieved after taking Tylenol. He thinks that it could perhaps be secondary to withdrawal from caffeine. Constitutional: No chills, No fever Eyes: + problem reported (headache), No worsening of vision ENT: No hearing loss Respiratory: No cough, No shortness of breath, No sputum, No wheezing Cardiovascular: No chest pain, No palpitations Abdomen: No nausea, No pain, No vomiting Musculoskeletal: No joint pain Male : No dysuria Neurologic: No memory loss Heme: No abnormal bleeding/bruising Endo: No fatigue Medications Current Inpatient Medications Medications (Trade) Dose Ordered Sig/Sera Route Start Time Stop Time Status Last Admin Dose Admin Nitroglycerin (Nitrostat Tab) 0.4 mg UD PRN SL 10/29/16 01:00 11/28/16 00:59 10/29/16 04:12 0.4 MG Aspirin (Ecotrin Tab) 81 mg QAM PO 10/29/16 09:00 11/28/16 08:59 10/30/16 08:50 81 MG Miscellaneous (Iv Fluids Completed) 1 ea PRN PRN N/A 10/29/16 01:45 10/29/17 01:44 Atorvastatin Calcium (Lipitor Tab) 80 mg QAM PO 10/29/16 09:00 11/28/16 08:59 10/30/16 08:50 80 MG Atropine Sulfate (Atropine Sulfate 0.1MG/Ml Inj) 0.5 mg ONE PRN IV 10/29/16 08:45 11/28/16 08:44 Ondansetron HCl (Zofran Inj) 4 mg Q6H PRN IV 10/29/16 08:45 11/28/16 08:44 Clopidogrel Bisulfate (plAVix TAB) 75 mg QAM PO 10/29/16 11:00 11/28/16 10:59 Future hold 10/30/16 09:00 75 MG Metoprolol Tartrate (Lopressor Tab) 25 mg Q12 PO 10/29/16 11:00 11/28/16 10:59 10/30/16 08:50 25 MG Lisinopril (Zestril Tab) 5 mg QAM PO 10/29/16 11:00 11/28/16 10:59 10/30/16 08:52 5 MG Acetaminophen (Tylenol Tab) 650 mg Q4H PRN PO 10/29/16 08:45 11/28/16 08:44 10/30/16 03:33 650 MG Morphine Sulfate 2 mg 2 mg Q5M PRN IV 10/29/16 08:45 11/12/16 08:44 Lorazepam/Syringe (Ativan Inj/ Syringe) 0.25 ml @ 1 mls/min Q6H PRN IV 10/29/16 08:45 11/28/16 08:44 Pantoprazole Sodium (Protonix Tab) 40 mg QAM PO 10/30/16 09:00 11/29/16 08:59 10/30/16 08:51 40 MG Clopidogrel Bisulfate (plAVix TAB) 75 mg QAM PO 10/30/16 09:00 11/29/16 08:59 10/30/16 08:51 75 MG Objective Vital Signs Date Time Temp Pulse Resp B/P Pulse Ox O2 Delivery O2 Flow Rate FiO2 10/30/16 15:15 36.7 71 18 119/79 95 Room Air 10/30/16 13:23 36.8 67 18 124/75 98 Room Air 10/30/16 13:00 37.0 62 18 95 10/30/16 12:00 71 20 138/90 94 Room Air 10/30/16 12:00 95 Room Air 10/30/16 09:00 70 16 131/91 99 Room Air 10/30/16 08:00 95 Room Air 10/30/16 08:00 36.8 77 16 123/80 95 Room Air 10/30/16 06:00 59 13 118/82 95 Room Air 10/30/16 05:00 138/78 10/30/16 04:13 56 12 94 10/30/16 04:10 95 Room Air 10/30/16 04:00 98/65 10/30/16 03:00 115/73 10/30/16 02:07 63 14 95 10/30/16 02:00 110/56 10/30/16 01:00 59 14 108/71 10/30/16 00:00 96 Room Air 10/30/16 00:00 36.7 63 16 111/77 95 10/29/16 23:10 73 5 109/71 10/29/16 23:00 77 19 113/50 10/29/16 22:00 59 18 97/74 Room Air 10/29/16 20:00 96 Room Air 10/29/16 20:00 36.9 64 18 105/74 Room Air Physical Exam General Appearance: WD/WN, no apparent distress Eyes: normal inspection ENT: normal ENT inspection, hearing grossly normal Neck: supple Respiratory/Chest: chest non-tender, lungs clear, normal breath sounds, no respiratory distress, no accessory muscle use Cardiovascular: regular rate, rhythm Abdomen: normal bowel sounds, non tender, soft Extremities: normal range of motion, non-tender, normal capillary refill, + pertinent finding (cath site on RUE covered with dressing. ) Neurologic/Psychiatric: alert, normal mood/affect, oriented x 3 Skin: normal color Lymphatic: no adenopathy Laboratory Results Last Resulted 10/30/16 05:40 Red Blood Count 4.45, Mean Corpuscular Volume 86.1, Mean Corpuscular Hemoglobin 28.1, Mean Corpuscular Hemoglobin Concent 32.6, Mean Platelet Volume 11.4, Neutrophils (%) (Auto) 57.4, Lymphocytes (%) (Auto) 29.0, Monocytes (%) (Auto) 11.0, Eosinophils (%) (Auto) 1.9, Basophils (%) (Auto) 0.6, Neutrophils # (Auto ) 3.86, Lymphocytes # (Auto) 1.95, Monocytes # (Auto) 0.74, Eosinophils # (Auto ) 0.13, Basophils # (Auto) 0.04 Last Resulted 10/30/16 05:40 Past 24 Hours Test 10/30/16 00:45 Range/Units Creatine Kinase MB 108.7 H 0.5-3.6 ng/ml Creatine Kinase MB Ratio 8.7 H 0-3.0 Total Creatine Kinase 1243 H 39-308 U/L Troponin I 52.500 *H 0-0.045 ng/ml Assessment and Plan 56-year-old male with past medical history of hypertension and hyperlipidemia controlled with diet and lifestyle modifications presented to the ER with complaints of a vague chest discomfort which started last night . Status post cardiac catheterization with stents for 100% occlusion of mid RCA . Telemetry did reveal a few PVCs. STEMI status post cardiac catheterization with drug-eluting stent in mid RCA - Integrilin infusion completed - Continue aspirin 81 mg daily indefinitely and Plavix 75 mg for 1 year - Metoprolol tartrate 25 mg twice daily, atorvastatin 80 mg daily, lisinopril 5 mg daily added - Troponins trended, peaked at 79 - Cardiac rehabilitation upon discharge Hypertension: - Diet controlled - Continue metoprolol and lisinopril Hyperlipidemia: - Continue atorvastatin PT/OT Full code DVT prophylaxis: Aspirin/Plavix, SCDs Disposition: Transfer to telemetry Resident Tracking Resident Involvement: Resident Care Provided Care Provided: Adult Hospital Medicine Reviewed: Pt Seen/Exam by Me History Resident Physician Supervision Note: I interviewed and examined the patient. Discussed with Dr. Zazueta and agree with findings and plan as documented in the note. Any exceptions or clarifications are listed here: Patient doing very well one day after stent placed to 100% occlusion in the RCA after inferior wall STEMI. Had one 4 beat run of NSVT on telemetry and otherwise no significant events. No further chest pain or left arm pain. Vitals reviewed, no significant events on telemetry No acute distress, AAO 3 RRR, no MGR Clear to auscultation bilaterally, breathing unlabored Positive bowel sounds soft nontender nondistended Extremities no edema 56-year-old male with history of hyperlipidemia and hypertension tension controlled with diet and exercise, here with inferior wall STEMI. LVEF during cardiac cath was 50%. -Started on aspirin, Integrilin and now switch to aspirin and Plavix for at least 1 year -Continue lisinopril and metoprolol, high-dose statin -Monitor on telemetry for arrhythmias and monitor electrolytes are abnormalities /reperfusion and likely discharged home tomorrow -Appreciate cardiology management -Will need cardiac rehabilitation as an outpatient after cardiology follow-up in 2-[address] Gramajo Documented By: Juliet Calderon
[2016-10-31 03:40] VITALS: BP 111/75; PULSE 66; TEMP 36.5; O2SAT 95
[2016-10-31 06:06] LABS: BASO % 0.6 %; BASO ABS # 0.04 K/uL (0-0.2); COMPLETE YES; EOS % 2.4 %; HEMATOCRIT 38.7 % (42-52); IG% 0.2 %; LYMPH % 23.5 %; LYMPH ABS # 1.56 K/uL (1.2-3.4); MEAN CELL VOLUME 85.1 fL (80-100); MEAN CORPUSCULAR HEMOGLOBIN 28.1 pg (25-34); MEAN CORPUSCULAR HGB CONC 33.1 g/dl (32-36); MONO % 12.7 %; NEUT % 60.6 %; PLATELET COUNT 133 K/uL (130-400); RED BLOOD COUNT 4.55 M/uL (4.7-6.1); WHITE BLOOD COUNT 6.63 K/uL (4.8-10.8)
[2016-10-31 06:42] LABS: CREATININE 0.69 mg/dl (0.60-1.40)
[2016-10-31 06:43] LABS: BUN/CREATININE RATIO 14.9 (10-20); CALCIUM 8.2 mg/dl (8.5-10.1)
[2016-10-31] MEDS: METOPROLOL TARTRATE 25 MG TAB PO SCH (08:27)
[2016-10-31] MEDS: ASPIRIN 81 MG ECTAB PO SCH (08:27)
[2016-10-31] MEDS: ATORVASTATIN 40 MG TAB PO SCH (08:27)
[2016-10-31] MEDS: LISINOPRIL 5 MG TAB PO SCH (08:28)
[2016-10-31] MEDS: PANTOprazole SOD 40 MG TAB PO SCH (08:28)
[2016-10-31] MEDS: CLOPIDOGREL BISULFATE 75 MG TAB PO SCH ×2 (08:29→09:00)
--- NOTE | 2016-10-31 08:40 | Cardiology Follow-Up ---
Subjective Subjective Date of Service: October 31, 2016. Pt evaluation today including: conversation w/ patient, physical exam, chart review, lab review, review of studies, review of inpatient medication list Additional Details: Feeling well. No chest pain. No other new concerns. Tele reviewed -- no events overnight. Review of Systems Constitutional: No chills, No fever ENT: No hearing loss Respiratory: No cough, No wheezing Cardiac: No chest pain, No palpitations Abdomen: No nausea, No pain, No vomiting Musculoskeletal: No joint pain Male : No dysuria Neurologic: No memory loss Heme: No abnormal bleeding/bruising Endo: No fatigue Objective Vital Signs Last Vital Signs Documentation Date Time Temp Pulse Resp B/P Pulse Ox O2 Delivery O2 Flow Rate FiO2 10/31/16 04:00 Room Air 10/31/16 03:40 36.5 66 17 111/75 95 Physical Exam: General Appearance: no apparent distress ENT: hearing grossly normal Neck: supple Respiratory/Chest: lungs clear, normal breath sounds Cardiovascular: regular rate, rhythm Abdomen: normal bowel sounds, non tender, soft Extremities: normal range of motion, non-tender, normal capillary refill, + pertinent finding (no ecchymosis. ) Neurologic/Psychiatric: alert, normal mood/affect, oriented x 3 Skin: normal color Lymphatic: no adenopathy Assessment and Plan 1. Inferior STEMI -- post procedure day 2 2. Hypertension -- blood pressure well controlled. 3. Hyperlipidemia -- on high intensity statin Overall doing well post primary PCI for inferior STEMI From a cardiac standpoint OK for discharge today. -- continue DAPT with ASA and Clopidogrel for 1 year. -- continue metoprolol, lisinopril and statin. -- follow-up with Dr. Gramajo in 2-3 weeks with discussion of cardiac rehab. Medications: Current Inpatient Medications Medications (Trade) Dose Ordered Sig/Sera Route Start Time Stop Time Status Last Admin Dose Admin Nitroglycerin (Nitrostat Tab) 0.4 mg UD PRN SL 10/29/16 01:00 11/28/16 00:59 10/29/16 04:12 0.4 MG Aspirin (Ecotrin Tab) 81 mg QAM PO 10/29/16 09:00 11/28/16 08:59 10/31/16 08:27 81 MG Miscellaneous (Iv Fluids Completed) 1 ea PRN PRN N/A 10/29/16 01:45 5/9/18 01:44 Atorvastatin Calcium (Lipitor Tab) 80 mg QAM PO 10/29/16 09:00 11/28/16 08:59 10/31/16 08:27 80 MG Atropine Sulfate (Atropine Sulfate 0.1MG/Ml Inj) 0.5 mg ONE PRN IV 10/29/16 08:45 11/28/16 08:44 Ondansetron HCl (Zofran Inj) 4 mg Q6H PRN IV 10/29/16 08:45 11/28/16 08:44 Clopidogrel Bisulfate (plAVix TAB) 75 mg QAM PO 10/29/16 11:00 11/28/16 10:59 Future hold 10/31/16 08:29 75 MG Metoprolol Tartrate (Lopressor Tab) 25 mg Q12 PO 10/29/16 11:00 11/28/16 10:59 10/31/16 08:27 25 MG Lisinopril (Zestril Tab) 5 mg QAM PO 10/29/16 11:00 11/28/16 10:59 10/31/16 08:28 5 MG Acetaminophen (Tylenol Tab) 650 mg Q4H PRN PO 10/29/16 08:45 11/28/16 08:44 10/30/16 03:33 650 MG Morphine Sulfate 2 mg 2 mg Q5M PRN IV 10/29/16 08:45 11/12/16 08:44 Lorazepam/Syringe (Ativan Inj/ Syringe) 0.25 ml @ 1 mls/min Q6H PRN IV 10/29/16 08:45 11/28/16 08:44 Pantoprazole Sodium (Protonix Tab) 40 mg QAM PO 10/30/16 09:00 11/29/16 08:59 10/31/16 08:28 40 MG Clopidogrel Bisulfate (plAVix TAB) 75 mg QAM PO 10/30/16 09:00 11/29/16 08:59 10/30/16 08:51 75 MG Lab Results: 10/31/16 05:34 Red Blood Count 4.55, Mean Corpuscular Volume 85.1, Mean Corpuscular Hemoglobin 28.1, Mean Corpuscular Hemoglobin Concent 33.1, Mean Platelet Volume 11.0, Neutrophils (%) (Auto) 60.6, Lymphocytes (%) (Auto) 23.5, Monocytes (%) (Auto) 12.7, Eosinophils (%) (Auto) 2.4, Basophils (%) (Auto) 0.6, Neutrophils # (Auto ) 4.02, Lymphocytes # (Auto) 1.56, Monocytes # (Auto) 0.84, Eosinophils # (Auto ) 0.16, Basophils # (Auto) 0.04 10/31/16 05:34 Test 10/31/16 05:34 White Blood Count 6.63 K/uL (4.8-10.8) Red Blood Count 4.55 M/uL (4.7-6.1) Hemoglobin 12.8 g/dL (14.0-18.0) Hematocrit 38.7 % (42-52) Mean Corpuscular Volume 85.1 fL (80-100) Mean Corpuscular Hemoglobin 28.1 pg (25-34) Mean Corpuscular Hemoglobin Concent 33.1 g/dl (32-36) Platelet Count 133 K/uL (130-400) Mean Platelet Volume 11.0 fL (7.4-10.4) Neutrophils (%) (Auto) 60.6 % Lymphocytes (%) (Auto) 23.5 % Monocytes (%) (Auto) 12.7 % Eosinophils (%) (Auto) 2.4 % Basophils (%) (Auto) 0.6 % Neutrophils # (Auto) 4.02 K/uL (1.4-6.5) Lymphocytes # (Auto) 1.56 K/uL (1.2-3.4) Monocytes # (Auto) 0.84 K/uL (0.11-0.59) Eosinophils # (Auto) 0.16 K/uL (0-0.5) Basophils # (Auto) 0.04 K/uL (0-0.2) RDW Standard Deviation 41.0 fL (36.4-46.3) RDW Coefficient of Variation 13.3 % (11.5-14.5) Immature Granulocyte % (Auto) 0.2 % Immature Granulocyte # (Auto) 0.01 K/uL (0.00-0.02) Anion Gap 5.0 mmol/L (3-11) Est Creatinine Clear Calc Drug Dose 143.3 ml/min Estimated GFR () 122.1 Estimated GFR (Non- 105.4 BUN/Creatinine Ratio 14.9 (10-20) Calcium Level 8.2 mg/dl (8.5-10.1)
[2016-10-31 08:45] VITALS: BP 117/85; PULSE 65; TEMP 36.6; O2SAT 96
--- NOTE | 2016-10-31 10:17 | Discharge Instructions ---
Discharge Instructions Date of Service October 31, 2016. Admission Reason for Admission: Chest Pain, R/O Acute Myocardial Infarction Discharge Discharge Diagnosis / Problem: Myocardial infarction (STEMI) Discharge Goals Goal(s): Decrease discomfort, Improve function Activity Recommendations Activity Limitations: per Instructions/Follow-up section . Instructions / Follow-Up Instructions / Follow-Up You were admitted with left sided chest pressure and numbness along your arm. You had a cardiac cath performed with placement of a drug eluting stent in your RCA. Recommendations: Myocardial infarction: - Continue aspirin 81 mg daily indefinitely and Plavix 75 mg daily for 1 year - Continue Metoprolol tartrate 25 mg twice daily, atorvastatin 80 mg daily, lisinopril 5 mg daily - Use Nitroglycerin sublingual as needed for chest pain - Cardiac rehabilitation upon discharge Hypertension: - Diet controlled - Continue Metoprolol and lisinopril Hyperlipidemia: - Continue atorvastatin Please follow up with PCP in about a week Please follow up with Dr. Gramajo in 2-3 weeks Home Care: * Take your medications exactly as directed. Don't skip doses. * Remember that recovery after a heart attack takes time. Plan to rest for at lease 4-8 weeks while you recover. Then return to normal activity when your doctor says it's okay. * Ask your doctor about joining a heart rehabilitation program. * Tell your doctor if you are feeling depressed. Feelings of sadness are common after a heart attack, but it is important that you speak to someone if you are feeling overwhelmed by these feelings. * If you are having chest pain, call 911 for an ambulance. Do NOT drive yourself to the hospital. * Ask your family members to learn CPR. * Learn to take your own blood pressure and pulse. Keep a record of your results. Ask your doctor when you should seek emergency medical attention. He or she will tell you which blood pressure reading is dangerous. Lifestyle Changes: * Maintain a healthy weight. Get help to lose any extra pounds. * Cut back on salt. * Limit canned, dried, packaged, and fast foods. * Don't add salt to your food. * Season foods with herbs instead of salt when you cook. * Break the smoking habit. Enroll in a stop-smoking program to improve your chances of success. * Limit fatty foods. * Check your lipid levels regularly. (Your doctor can show you how to do this.) * Build up your activity according to your doctor's recommendation. * Ask your doctor when it's okay to resume sexual activity. * Tell your doctor about any erectile dysfunction (ED) medication you are taking. Some ED medications are not safe if you take certain heart medications. * Try to manage stress. Follow Up: It is important for you to keep your follow up appointments with your medical provider. Current Hospital Diet Patient's current hospital diet: AHA Diet (Heart Healthy), Diabetes Type 2 Diet Discharge Diet Recommended Diet: AHA Diet (Heart Healthy) Procedures Procedures Performed: Cardiac catheterization with drug eluting stent in RCA Pending Studies Studies pending at discharge: no Laboratory Results Hemoglobin A1c Test 10/28/16 22:07 Range/Units Estimated Average Glucose 111 mg/dl Hemoglobin A1c 5.5 4.5-5.6 % Lipid Panel Test 10/29/16 05:15 Range/Units Triglycerides Level 331 H 0-150 mg/dl Cholesterol Level 236 H 0-200 mg/dl HDL Cholesterol 31 mg/dl Cholesterol/HDL Ratio 7.6 LDL Cholesterol, Calculated 139 mg/dl Medical Emergencies . Who to Call and When: Medical Emergencies: If at any time you feel your situation is an emergency, please call 911 immediately. Call 911 immediately or go to your nearest Emergency Room if you experience any of the following: Warning Signs and Symptoms of a Heart Attack * Chest pain that is not relieved by medication * Shortness of breath . Non-Emergent Contact Non-Emergency issues call your: Primary Care Provider . . "Provider Documentation" section prepared by Wanda Zazueta. . AMI Core Measures Reason no ASA as I/P: Treatment provided - N/A Reason no ASA at D/C: Treatment provided - N/A Reason no statin as I/P: Treatment provided - N/A Reason no statin at D/C: Treatment provided - N/A VTE Core Measure Inpt VTE Proph given/why not?: Other Anticoagulation (asp/plavix/integrilin) Resident Tracking Resident Involvement: Resident Care Provided Care Provided: Adult Hospital Medicine
[2016-10-31] MEDS ORDERED: LPR25 PO (11:03)
[2016-10-31] MEDS ORDERED: LPT40 PO (11:03)
[2016-10-31] MEDS ORDERED: NTRSLP4 SL (11:03)
[2016-10-31] MEDS ORDERED: PLV75 PO (11:03)
[2016-10-31] MEDS ORDERED: LSN5 PO (11:03)
--- NOTE | 2016-10-31 11:07 | Discharge Summary ---
Discharge Summary Date of Service October 31, 2016. (Wanda Zazueta MD) Discharge Summary Admission Date: October 30, 2016 at 07:27 Discharge Date: October 31, 2016 Discharge Disposition: Home Principal Diagnosis: STEMI s/p RCA drug eluting stent Procedures: Cardiac catheterization with drug-eluting stent placement in the RCA Consultations: Cardiology (Wanda Zazueta MD) Medication Reconciliation New Medications: Atorvastatin (Atorvastatin Calcium) 40 Mg Tab 80 MG PO QAM for 60 Days, #120 TAB 3 Refills Clopidogrel Bisulfate (Clopidogrel) 75 Mg Tab 75 MG PO QAM for 60 Days, #60 TAB 3 Refills Lisinopril (Lisinopril) 5 Mg Tab 5 MG PO QAM for 30 Days, #30 TAB Metoprolol Tartrate (Lopressor) 25 Mg Tab 25 MG PO Q12 for 30 Days, #60 TAB 2 Refills Nitroglycerin (Nitrostat) 0.4 Mg/1 Tab Subl 0.4 MG SL UD PRN for Chest Pain, #20 Discharge Exam Doing great today. Denies any CP/SOB/palpitations Review of Systems: Constitutional: No chills, No fever Eyes: No worsening of vision ENT: No hearing loss Respiratory: No cough, No sputum Cardiovascular: No chest pain, No edema, No palpitations Abdomen: No nausea, No pain Genitourinary - Male: No dysuria, No hematuria, No urinary frequency Psychiatric: No depression symptoms Endocrine: No fatigue Hematologic / Lymphatic: No abnormal bleeding/bruising Physical Exam: General Appearance: WD/WN, no apparent distress Eyes: normal inspection ENT: normal ENT inspection, hearing grossly normal Neck: supple, no adenopathy Respiratory/Chest: chest non-tender, lungs clear, normal breath sounds, no respiratory distress, no accessory muscle use Cardiovascular: regular rate, rhythm, no edema Abdomen / GI: normal bowel sounds, non tender, soft Extremities: normal inspection, no calf tenderness Neurologic/Psychiatric: alert, normal mood/affect, oriented x 3 Skin: normal color (Wanda Zazueta MD) Hospital Course 56-year-old male with past medical history of hypertension and hyperlipidemia controlled with diet and lifestyle modifications presented to the ER with complaints of a vague chest discomfort which started last night . His radiation to his left arm with numbness and is associated with nausea and dizziness. He however denied any shortness of breath and palpitations. In the ER, he had no acute EKG changes and initial troponin was negative. He developed some chest discomfort in the morning which resulted in increase in his troponin to 0.146 and an EKG revealed ST elevation in the inferior leads. Cardiac catheterization was performed which revealed 100% occlusion of the mid RCA. A drug eluting stent was placed and he was transferred to the ICU on Integrilin infusion STEMI status post cardiac catheterization with drug-eluting stent in mid RCA - Integrilin infusion completed - Continue aspirin 81 mg daily indefinitely and Plavix 75 mg for 1 year - Metoprolol tartrate 25 mg twice daily, atorvastatin 80 mg daily, lisinopril 5 mg daily added - Troponins trended, peaked at 79 - Cardiac rehabilitation upon discharge Hypertension: - Diet controlled - Continue metoprolol and lisinopril Hyperlipidemia: - Continue atorvastatin Follow-up with PCP in 1 week. Follow-up with Dr. Gramajo/cardiology in 2-3 weeks Total Time Spent: Less than 30 minutes This includes examination of the patient, discharge planning, medication reconciliation, and communication with other providers. (Wanda Zazueta MD) Discharge Instructions Please refer to the electronic Patient Visit Report (Discharge Instructions) for additional information. (Wanda Zazueta MD) Follow-Up With PCP in about a week. With cardiology in 2-3 weeks (Wanda Zauzeta MD) Additional Copies To Catrachito Doyle M.D. Resident Tracking Resident Involvement: Resident Care Provided Care Provided: [facility] (name) (Wanda Zazueta MD) Reviewed: Pt Seen/Exam by Me (Juliet Calderon MD) History Resident Physician Supervision Note: I interviewed and examined the patient. Discussed with Dr. Zazueta and agree with findings and plan as documented in the note. Any exceptions or clarifications are listed here: Doing well on day of discharge, no further chest pain, no significant events on telemetry. Tolerating all new medications well. Vitals reviewed, no significant events on telemetry No acute distress, AAO 3 RRR, no MGR Clear to auscultation bilaterally, breathing unlabored Positive bowel sounds soft nontender nondistended Extremities no edema 56-year-old male with history of hyperlipidemia and hypertension tension controlled with diet and exercise, here with inferior wall STEMI. LVEF during cardiac cath was 50%. Now status post drug-eluting stent to the RCA. -Continue aspirin and Plavix for at least 1 year -Continue lisinopril and metoprolol, high-dose statin -Appreciate cardiology management -Will need cardiac rehabilitation as an outpatient after cardiology follow-up in 2-[address] Gramajo -Stable for discharge to home today Documented By: Juliet Calderon (Juliet Calderon MD)
[2016-10-31] MEDS ORDERED: ASPEC81 PO (11:09)
[2016-10-31 11:29] VITALS: BP 117/85; PULSE 65; TEMP 36.6; O2SAT 96
[2016-10-31 12:03] VITALS: BP 136/89; PULSE 60; TEMP 36.6; O2SAT 95
== END 2016-10-31 11:55 | disposition home or self-care (01) | DRG 247 ==
LOC: ENRESERVTM → ENRESERVDT → C.EDB 21:51 → C.2E 10-29 00:53 → C.MSICU 10-29 09:57 → OBSVTOIN 10-30 07:27 → C.2E 10-30 14:22
PROVIDERS: ADMIT Hospitalist; ATTEND Family Medicine
PROC: B211YZZ Fluoroscopy of Multiple Coronary Arteries using Other Contrast (ICD-10-PCS; principal; 2016-10-29 08:26)
PROC: 027034Z Dilation of Coronary Artery, One Artery with Drug-eluting Intraluminal Device, Percutaneous Approach (ICD-10-PCS; principal; 2016-10-29 08:26)
PROC: 4A023N7 Measurement of Cardiac Sampling and Pressure, Left Heart, Percutaneous Approach (ICD-10-PCS; principal; 2016-10-29 08:26)
DX: I21.19 ST elevation (STEMI) myocardial infarction involving other coronary artery of inferior wall (principal); R51 Headache; I11.9 Hypertensive heart disease without heart failure; E78.5 Hyperlipidemia, unspecified; Z51.81 Encounter for therapeutic drug level monitoring; Z82.49 Family history of ischemic heart disease and other diseases of the circulatory system; Z83.49 Family history of other endocrine, nutritional and metabolic diseases

== ENCOUNTER → 2017-04-03 | Outpatient (CLI) | payer BC ==
[~2017-04-03] MED LIST: ASPEC81 PO; LPR25 PO; LPT40 PO; LSN5 PO; NTRSLP4 SL; PLV75 PO
[2017-04-03 09:40] LABS: HEMATOCRIT 43.2 % (42-52); MEAN CELL VOLUME 85.2 fL (80-100); MEAN CORPUSCULAR HEMOGLOBIN 28.6 pg (25-34); MEAN CORPUSCULAR HGB CONC 33.6 g/dl (32-36); MEAN PLATELET VOLUME 11.6 fL (7.4-10.4); PLATELET COUNT 156 K/uL (130-400); RED BLOOD COUNT 5.07 M/uL (4.7-6.1); WHITE BLOOD COUNT 5.63 K/uL (4.8-10.8)
[2017-04-03 10:02] LABS: ALT/SGPT 46 U/L (12-78); AST/SGOT 24 U/L (15-37); BLOOD UREA NITROGEN 16 mg/dl (7-18); BUN/CREATININE RATIO 20.1 (10-20); CALCIUM 8.7 mg/dl (8.5-10.1); CARBON DIOXIDE 29 mmol/L (21-32); CHLORIDE 107 mmol/L (98-107); CREATININE 0.79 mg/dl (0.60-1.40); GLUCOSE 102 mg/dl (70-99); POTASSIUM 4.4 mmol/L (3.5-5.1); SODIUM 140 mmol/L (136-145)
[2017-04-03 10:04] LABS: ALB/GLOB RATIO 1.1 (0.9-2); ALKALINE PHOSPHATASE 96 U/L (45-117); CHOLESTEROL 180 mg/dl (0-200); CHOLESTEROL/HDL RATIO 4.6; HDL CHOLESTEROL 39 mg/dl; LDL CHOLESTEROL CALCULATED 105 mg/dl; TRIGLYCERIDES 179 mg/dl (0-150); VERY LOW DENSITY LIPOPROT CALC 36 mg/dl
== END | disposition home or self-care (01) ==
LOC: C.LAB1850 08:03
PROVIDERS: ATTEND Internal Medicine Cardiovascular Disease
DX: I25.10 Atherosclerotic heart disease of native coronary artery without angina pectoris (principal)